=== PATIENT | male | born 1950 | race Caucasian/White ===

== ENCOUNTER 2017-04-22 13:52 | Emergency (ER) | payer BC, MEDICARE ==
[~2017-04-22] VITALS: Ht 177.8 cm; Wt 97.1 kg
[~2017-04-22 13:52] MED LIST: CARD30TA PO; OMEP20TA39 PO; SIMV20 PO
[2017-04-22 14:04] VITALS: BP 146/109; PULSE 95; RESP 16; TEMP 98.6; O2SAT 94
[2017-04-22] MEDS ORDERED: DILT31TA PO (14:17)
[2017-04-22] MEDS ORDERED: SIMV20TA PO (14:17)
[2017-04-22] MEDS ORDERED: OMEP20TA PO (14:17)
[2017-04-22] MEDS ORDERED: ROBA750T PO (14:19)
[2017-04-22] MEDS ORDERED: NAPR250T PO (14:19)
[2017-04-22] MEDS ORDERED: ASPI81CH CHEW (14:21)
[2017-04-22] MEDS ORDERED: VITA10002 PO (14:21)
--- NOTE | 2017-04-22 14:23 | PD ---
HPI Chief Complaint: Back/ Neck Pain or Injury Time Seen by Provider: 14:10 Travel History International Travel<30 days: No Contact w/Intl Traveler<30days: No Traveled to known affect area: No History of Present Illness HPI 67-year-old male presents to the emergency room for evaluation of left lower back pain without radiation for the past. Patient states he was standing on a cooler to kill a bug when he slipped/twisted and fell. He denies hitting his head or loss of consciousness. States he is not sure if the twisting motion causes pain or the fall caused his pain. Pain is worsened with any motion for when he reaches. Patient took his 's Flexeril and Vicodin this morning with moderate relief in symptoms. He any other injuries. Denies loss of bladder control, saddle anesthesia, and lower extremity paresthesias. Patient denies dysuria, urgency, frequency, nausea, and vomiting. PFSH Past Medical History Atrial Fibrillation: Yes High Cholesterol: Yes Diminished Hearing: No Hypertension: Yes Past Surgical History Abdominal Surgery: Yes (HERNIORRHAPHY) Appendectomy: Yes Joint Replacement: Yes (KNEE) Social History Alcohol Use: Yes (BEER DAILY) Tobacco Use: No Substance Use: No Allergies-Medications (Allergen,Severity, Reaction): Coded Allergies: No Known Allergies (Unverified , 04/22/17) Reported Meds & Prescriptions Reported Meds & Active Scripts Active Robaxin (Methocarbamol) 750 Mg Tab 750 Mg PO Q8HR Naproxen 250 Mg Tab 250 Mg PO BID Reported Vitamin B-12 (Cyanocobalamin) 1,000 Mcg Tab 1,000 Mcg PO DAILY Aspirin 81 Mg Chew 81 Mg CHEW DAILY Simvastatin 20 Mg Tab 40 Mg PO DAILY Omeprazole 20 Mg Tab 20 Mg PO DAILY Cardizem (Diltiazem HCl) 30 Mg Tab 30 Mg PO DAILY Review of Systems Except as stated in HPI: all other systems reviewed are Neg Physical Exam Narrative GENERAL: Well-nourished, well-developed male in no acute distress. Afebrile. Ambulatory. SKIN: Focused skin assessment warm/dry. No erythema or ecchymosis. HEAD: Normocephalic. EYES: No scleral icterus. No injection or drainage. NECK: Supple, trachea midline. No JVD or lymphadenopathy. CARDIOVASCULAR: Regular rate and rhythm without murmurs, gallops, or rubs. RESPIRATORY: Breath sounds equal bilaterally. No accessory muscle use. BACK: No CVA tenderness. No rash. No point tenderness on palpation of the spine. Strength 5/5 and equal in lower extremities. 2+ patellar and Achilles reflexes are equal bilaterally. Data Data Last Documented VS Vital Signs Date Time Temp Pulse Resp B/P Pulse Ox O2 Delivery O2 Flow Rate FiO2 04/22/17 14:04 98.6 95 16 146/109 94 Orders Orphenadrine Inj (Norflex Inj) (04/22/17 14:30) Ketorolac Inj (Toradol Inj) (04/22/17 14:30) [facility] Medical Decision Making Medical Screen Exam Complete: Yes Emergency Medical Condition: Yes Medical Record Reviewed: Yes Differential Diagnosis Spasm, strain, sprain, fracture Narrative Course 67 year-old male presents to the emergency room for evaluation of left-sided low back pain after injuring it 2 days ago. Patient states he twisted funny and felt immediate, sharp pain in his left lower back. Denies any other trauma or injuries. He has been ambulatory since onset symptoms. No CVA tenderness. No midline tenderness. No focal neurological deficits. Strength 5/5 and equal lower extremity. 2+ patellar and Achilles reflexes are equal bilaterally. No indication for imaging at this time. Patient given Toradol and Norflex in the emergency room. He'll be discharged with prescriptions for naproxen and Robaxin. Told to follow-up with a primary care physician or return for worsening symptoms. He understands and agrees to plan. Diagnosis Primary Impression: Strain of muscle, fascia and tendon of lower back, initial encounter Referrals: Primary Care Physician Patient Instructions: General Instructions, Muscle Spasm (ED) Additional Instructions: Rest and drink plenty of fluids. Take Robaxin as directed, as needed for pain. Take Naprosyn with food as directed, as needed for pain. Apply ice to the affected area for 20 minutes at a time, as needed for pain and swelling. Follow-up with a primary care physician. Return to the emergency room for worsening symptoms. Med/Other Pt SpecificInfo: Prescription(s) given Scripts Methocarbamol (Robaxin)750 Mg [id number] Mg PO Q8HR #15 TAB Ref 0 Prov:Shira Costa MD 04/22/17 Naproxen 250 Mg [id number] Mg PO BID #14 TAB Ref 0 Prov:Shira Costa MD 04/22/17 Disposition: 01 DISCHARGE HOME Condition: Stable Ann-Marie Frederick Apr 22, 2017 14:23
[2017-04-22] MEDS ORDERED: KETOROLAC TROMETHAMINE 60 MG/2 ML (IM) VIAL IM ONE (14:30)
[2017-04-22] MEDS ORDERED: ORPHENADRINE INJ 60 MG/2 ML AMP IM ONE (14:30)
== END 2017-04-22 14:32 | disposition home or self-care (01) ==
LOC: PHEFT 13:52
DX: S39.012A Strain of muscle, fascia and tendon of lower back, initial encounter (principal); I48.91 Unspecified atrial fibrillation; E78.00 Pure hypercholesterolemia, unspecified; I10 Essential (primary) hypertension; W17.89XA Other fall from one level to another, initial encounter; X50.1XXA Overexertion from prolonged static or awkward postures, initial encounter
CPT/HCPCS: 96372; 99284; J1885; J2360

== ENCOUNTER 2018-03-06 15:36 | Inpatient (IN) | payer MEDICARE, BC ==
[~2018-03-06] VITALS: Ht 177.8 cm; Wt 96.1 kg
[~2018-03-06 15:36] MED LIST changes: +ASPI-516 CHEW; -CARD30TA PO; +DILT31TA PO; +NAPR250T4 PO; -OMEP20TA39 PO; +OMEP20TA93 PO; +ROBA750T PO; -SIMV20 PO; +SIMV20TA PO; +VITA10002 PO
[2018-03-06 15:45] VITALS: BP 124/77; PULSE 75; RESP 18; TEMP 98.5; O2SAT 96
[2018-03-06] MEDS ORDERED: SODIUM CHLORIDE 0.9% FLUSH 10 ML FLUSH IVF PRN (16:00)
[2018-03-06 16:19] VITALS: BP 144/82; PULSE 80; RESP 18; RESP 19; O2SAT 98; O2SAT 99
[2018-03-06 16:27] LABS: AUTOMATED NEUTROPHIL # 4.4 TH/MM3 (1.8-7.7); BASOPHIL # 0.1 TH/MM3 (0-0.2); BASOPHIL % 0.8 % (0.0-2.0); EOSINOPHIL # 0.2 TH/MM3 (0-0.4); EOSINOPHIL % 3.3 % (0.0-4.0); HEMATOCRIT 47.3 % (39.0-51.0); HEMOGLOBIN 16.6 GM/DL (13.0-17.0); LYMPH % 22.9 % (9.0-44.0); LYMPHOCYTE # 1.6 TH/MM3 (1.0-4.8); MEAN CELL VOLUME 89.9 FL (80.0-100.0); MEAN CORPUSCULAR HEMOGLOBIN 31.6 PG (27.0-34.0); MEAN CORPUSCULAR HGB CONC 35.1 % (32.0-36.0); MEAN PLATELET VOLUME 9.8 FL (7.0-11.0); MONO % 9.6 % (0.0-8.0); MONOCYTE # 0.7 TH/MM3 (0-0.9); NEUT % 63.4 % (16.0-70.0); PLATELET COUNT 233 TH/MM3 (150-450); RED BLOOD COUNT 5.26 MIL/MM3 (4.50-5.90); RED CELL DISTRIBUTION WIDTH 13.8 % (11.6-17.2); WHITE BLOOD COUNT 6.9 TH/MM3 (4.0-11.0)
[2018-03-06 16:36] VITALS: PULSE 73; RESP 18; O2SAT 97
[2018-03-06 16:56] LABS: ALBUMIN 3.7 GM/DL (3.4-5.0); ALT (GPT) 25 U/L (12-78); AST (GOT) 18 U/L (15-37); BICARBONATE 26.3 MEQ/L (21.0-32.0); BLOOD UREA NITROGEN 11 MG/DL (7-18); CALCIUM 8.9 MG/DL (8.5-10.1); CHLORIDE 106 MEQ/L (98-107); CREATININE 1.12 MG/DL (0.60-1.30); GLOMERULAR FILTRATION RATE 65 ML/MIN (>89); GLUCOSE,RANDOM 89 MG/DL (74-106); MAGNESIUM 2.2 MG/DL (1.5-2.5); SODIUM (NA) 139 MEQ/L (136-145)
[2018-03-06 16:59] LABS: ALKALINE PHOSPHATASE 61 U/L (45-117); TOTAL BILIRUBIN ADULT 0.4 MG/DL (0.2-1.0); TOTAL PROTEIN 7.6 GM/DL (6.4-8.2)
[2018-03-06] MEDS ORDERED: MAGNESIUM HYDROXIDE SUSP 30 ML CUP PO PRN (17:45)
[2018-03-06] MEDS ORDERED: SODIUM CHLORIDE 0.9% FLUSH 10 ML FLUSH IV FLUSH PRN (17:45)
[2018-03-06] MEDS ORDERED: ONDANSETRON HCL 4 MG/2 ML VIAL IVP PRN (17:45)
[2018-03-06] MEDS ORDERED: NALOXONE HCL 0.4 MG/ML AMP IV PUSH PRN (17:45)
[2018-03-06] MEDS ORDERED: PILL SPLITTER OTHER PRN (18:00)
[2018-03-06] MEDS: ENOXAPARIN SODIUM 40 MG/0.4 ML SYRINGE SQ SCH (18:00)
[2018-03-06] MEDS ORDERED: DILTIAZEM HCL 30 MG TAB PO SCH (18:00)
[2018-03-06 18:09] VITALS: BP 116/71; PULSE 63; RESP 17; O2SAT 98
[2018-03-06] MEDS ORDERED: CARD120T4 PO (18:29)
--- NOTE | 2018-03-06 18:30 | PD ---
HPI Chief Complaint: Cardiac Complaint Time Seen by Provider: 15:55 Travel History International Travel<30 days: No Contact w/Intl Traveler<30days: No Traveled to known affect area: No History of Present Illness HPI This is a 67-year-old male who presents to the emergency department having had several episodes of lightheadedness. He was at the neurologist office when he felt like he was going to [facility], and felt like his ears were ringing and his vision was fading, constant, moderate severity lasting for several minutes and then subsiding. This happened 3 times. Ultimately the neurologist called an ambulance and had him transferred here. When [facility] arrived the patient was in a narrow complex tachycardia. The administered 20 mg of IV diltiazem and the patient converted to normal sinus rhythm. His symptoms resolved. Per his the patient has been seeing a neurologist regarding his lightheadedness and dizziness over the past several months. He has had 18 appointments regarding this and multiple evaluations which have been negative. He has not seen a correspondence school instructor for it. They do say that years ago he was diagnosed with a supraventricular tachycardia and started on diltiazem. Dr. Washington recently increased his dose. He has not seen a correspondence school instructor since then. PFSH Past Medical History Atrial Fibrillation: Yes High Cholesterol: Yes Diminished Hearing: No Hypertension: Yes Neurologic: Yes (subdural hematoma) ?: Not Past Surgical History Abdominal Surgery: Yes (HERNIORRHAPHY) Appendectomy: Yes Joint Replacement: Yes (KNEE) Social History Alcohol Use: Yes (BEER DAILY) Tobacco Use: No Substance Use: No Allergies-Medications (Allergen,Severity, Reaction): Coded Allergies: No Known Allergies (Unverified Allergy, Unknown, 03/06/18) Reported Meds & Prescriptions Reported Meds & Active Scripts Active Robaxin (Methocarbamol) 750 Mg Tab 750 Mg PO Q8HR Naproxen 250 Mg Tab 250 Mg PO BID Reported Cardizem (Diltiazem HCl) 120 Mg Tab 300 Mg PO DAILY Vitamin B-12 (Cyanocobalamin) 1,000 Mcg Tab 1,000 Mcg PO DAILY Aspirin 81 Mg Chew 81 Mg CHEW DAILY Simvastatin 20 Mg Tab 40 Mg PO DAILY Omeprazole 20 Mg Tab 20 Mg PO DAILY Cardizem (Diltiazem HCl) 30 Mg Tab 30 Mg PO DAILY Review of Systems Except as stated in HPI: all other systems reviewed are Neg Physical Exam Narrative GENERAL:Well appearing, no acute distress SKIN: Focused skin assessment warm and dry. HEAD: Atraumatic. Normocephalic. EYES: Pupils equal and round. No injection or drainage. ENT: Moist mucous membranes NECK: Trachea midline. CARDIOVASCULAR: Regular rate and rhythm. No murmur appreciated. RESPIRATORY: Clear to auscultation. Breath sounds equal bilaterally. GASTROINTESTINAL: Abdomen soft, non-tender, nondistended. MUSCULOSKELETAL: No obvious deformities. NEUROLOGICAL: Awake and alert. No obvious cranial nerve deficits. Moving all extremities. PSYCHIATRIC: Appropriate mood and affect; insight and judgment normal. Data Data Last Documented VS Vital Signs Date Time Temp Pulse Resp B/P (MAP) Pulse Ox O2 Delivery O2 Flow Rate FiO2 03/06/18 16:36 73 18 97 Room Air 03/06/18 15:45 98.5 Orders Orders Complete Blood Count With Diff (03/06/18 15:55) Comprehensive Metabolic Panel (03/06/18 15:55) Magnesium (Mg) (03/06/18 15:55) Ecg Monitoring (03/06/18 15:55) Bilateral Bp Monitoring (03/06/18 15:55) Iv Access Insert/Monitor (03/06/18 15:55) Oximetry (03/06/18 15:55) Oxygen Administration (03/06/18 15:55) Sodium Chloride 0.9% Flush (Ns Flush) (03/06/18 16:00) Troponin I (03/06/18 16:49) Electrocardiogram (03/06/18 15:42) Admit Order (Ed Use Only) (03/06/18 17:45) Labs Laboratory Tests Test 03/06/18 16:14 White Blood Count 6.9 TH/MM3 Red Blood Count 5.26 MIL/MM3 Hemoglobin 16.6 GM/DL Hematocrit 47.3 % Mean Corpuscular Volume 89.9 FL Mean Corpuscular Hemoglobin 31.6 PG Mean Corpuscular Hemoglobin Concent 35.1 % Red Cell Distribution Width 13.8 % Platelet Count 233 TH/MM3 Mean Platelet Volume 9.8 FL Neutrophils (%) (Auto) 63.4 % Lymphocytes (%) (Auto) 22.9 % Monocytes (%) (Auto) 9.6 % Eosinophils (%) (Auto) 3.3 % Basophils (%) (Auto) 0.8 % Neutrophils # (Auto) 4.4 TH/MM3 Lymphocytes # (Auto) 1.6 TH/MM3 Monocytes # (Auto) 0.7 TH/MM3 Eosinophils # (Auto) 0.2 TH/MM3 Basophils # (Auto) 0.1 TH/MM3 CBC Comment DIFF FINAL Differential Comment Blood Urea Nitrogen 11 MG/DL Creatinine 1.12 MG/DL Random Glucose 89 MG/DL Total Protein 7.6 GM/DL Albumin 3.7 GM/DL Calcium Level 8.9 MG/DL Magnesium Level 2.2 MG/DL Alkaline Phosphatase 61 U/L Aspartate Amino Transf (AST/SGOT) 18 U/L Alanine Aminotransferase (ALT/SGPT) 25 U/L Total Bilirubin 0.4 MG/DL Sodium Level 139 MEQ/L Potassium Level 4.2 MEQ/L Chloride Level 106 MEQ/L Carbon Dioxide Level 26.3 MEQ/L Anion Gap 7 MEQ/L Estimat Glomerular Filtration Rate 65 ML/MIN Troponin I LESS THAN 0.02 NG/ML MDM Medical Decision Making Medical Screen Exam Complete: Yes Emergency Medical Condition: Yes Interpretation(s) EKG: nsr, no st changes No leukocytosis Electrolytes are reassuring Troponin is normal Differential Diagnosis SVT, electrolyte abnormality, myocardial infarction, dehydration Narrative Course This is a 67-year-old male who presents to the emergent department with symptomatic SVT that occurred several times earlier today. He does not follow with the correspondence school instructor. He is already on diltiazem. Labs are reassuring. Given the frequency of the patient's symptoms despite rate control I think he would benefit from observation and cardiology consultation. Physician Communication Physician Communication Discussed with Dr. Live Diagnosis Primary Impression: Supraventricular tachycardia Admitting Information Admitting Physician Requests: Observation Jennifer Aguilar MD March 06, 2018 18:30
[2018-03-06] MEDS ORDERED: DILTIAZEM HCL 60 MG TAB PO ONE (19:15)
[2018-03-06] MEDS: NAPROXEN 250 MG TAB PO SCH (20:22)
[2018-03-06] MEDS: METOPROLOL TARTRATE 50 MG TAB PO SCH (20:25)
[2018-03-06] MEDS: SODIUM CHLORIDE 0.9% FLUSH 10 ML FLUSH IV FLUSH SCH (20:25)
[2018-03-06] MEDS ORDERED: METHOCARBAMOL 500 MG TAB PO SCH (22:00)
[2018-03-06 22:02] VITALS: BP 105/64; PULSE 52; RESP 17; O2SAT 98
[2018-03-06] MEDS ORDERED: THIAMINE HCL 100 MG TAB PO ONE (22:15)
--- NOTE | 2018-03-06 22:16 | HHI.HP ---
[facility] Service [facility] Primary Care Physician Jaswinder Washington MD Admission Diagnosis supraventricular tachycardia Diagnoses: Travel History International Travel<30 Days: No Contact w/Intl Traveler <30 Da: No Traveled to Known Affected Are: No History of Present Illness 59-year-old male with a history of SVT, who presents with 6 month history of progressively worsening feeling of lightheadedness. Patient was in neurologist office this afternoon when he felt like he was passing out. He does not quite remember this episode well. Reports tinnitus, blurry vision. Patient was found to have narrow complex tachycardia which resolved with IV diltiazem. Patient does report chest pain described as dull substernal on traveling to neurologists office. He denies any chest pain currently. Denies any nausea or vomiting. Denies any fevers or chills. He does report feeling lightheaded, however says this is somewhat improved at this time. Review of Systems Except as stated in HPI: all other systems reviewed are Neg Past Family Social History Past Medical History Chronic pain Hyperlipidemia History of subdural hematoma years ago History of SVT. GERD Past Surgical History Appendectomy Hernia surgery Subdural hematoma evacuation in the 1970s. Left shoulder surgery Reported Medications Reported Meds & Active Scripts Active Robaxin (Methocarbamol) 750 Mg Tab 750 Mg PO Q8HR Naproxen 250 Mg Tab 250 Mg PO BID Reported Cardizem (Diltiazem HCl) 120 Mg Tab 300 Mg PO DAILY Vitamin B-12 (Cyanocobalamin) 1,000 Mcg Tab 1,000 Mcg PO DAILY Aspirin 81 Mg Chew 81 Mg CHEW DAILY Simvastatin 20 Mg Tab 40 Mg PO DAILY Omeprazole 20 Mg Tab 20 Mg PO DAILY Cardizem (Diltiazem HCl) 30 Mg Tab 30 Mg PO DAILY Allergies: Coded Allergies: No Known Allergies (Unverified Allergy, Unknown, 03/06/18) Family History Mother with diabetes, CABG in her 70s. Father with ulcer, lung cancer. Social History Non-smoker. Patient drinks 3-4 beers per day. Has not drank in the past 2 days. Denies any history of withdrawal. Denies any illicit drugs. Physical Exam Vital Signs Vital Signs Date Time Temp Pulse Resp B/P (MAP) Pulse Ox O2 Delivery O2 Flow Rate FiO2 03/06/18 22:02 52 17 105/64 (78) 98 Nasal Cannula 2.00 03/06/18 18:09 63 17 116/71 (86) 98 Room Air 03/06/18 16:36 73 18 97 Room Air 03/06/18 16:19 80 19 144/82 (102) 98 Room Air 03/06/18 16:19 18 99 Room Air 03/06/18 16:19 99 Room Air 03/06/18 15:45 98.5 75 18 124/77 (93) 96 Room Air 03/06/18 15:45 75 18 96 Room Air Physical Exam GENERAL: This is a well-nourished, well-developed patient, in no apparent distress. Alert and oriented 3. SKIN: No rashes, ecchymoses or lesions. Cool and dry. HEAD: Atraumatic. Normocephalic. No temporal or scalp tenderness. EYES: Pupils equal round and reactive. Extraocular motions intact. No scleral icterus. No injection or drainage. ENT: Nose without bleeding, purulent drainage or septal hematoma. Throat without erythema, tonsillar hypertrophy or exudate. Uvula midline. Airway patent. NECK: Trachea midline. No JVD or lymphadenopathy. Supple, nontender, no meningeal signs. CARDIOVASCULAR: Regular rate and rhythm without murmurs, gallops, or rubs. RESPIRATORY: Clear to auscultation. Breath sounds equal bilaterally. No wheezes , rales, or rhonchi. GASTROINTESTINAL: Abdomen soft, non-tender, nondistended. No hepato-splenomegaly , or palpable masses. No guarding. MUSCULOSKELETAL: Extremities without clubbing, cyanosis, or edema. No joint tenderness, effusion, or edema noted. No calf tenderness. Negative Homans sign bilaterally. NEUROLOGICAL: Awake and alert. Cranial nerves II through XII intact. Motor and sensory grossly within normal limits. Five out of 5 muscle strength in all muscle groups. Normal speech. Laboratory Laboratory Tests Test 03/06/18 16:14 03/06/18 21:48 White Blood Count 6.9 Red Blood Count 5.26 Hemoglobin 16.6 Hematocrit 47.3 Mean Corpuscular Volume 89.9 Mean Corpuscular Hemoglobin 31.6 Mean Corpuscular Hemoglobin Concent 35.1 Red Cell Distribution Width 13.8 Platelet Count 233 Mean Platelet Volume 9.8 Neutrophils (%) (Auto) 63.4 Lymphocytes (%) (Auto) 22.9 Monocytes (%) (Auto) 9.6 Eosinophils (%) (Auto) 3.3 Basophils (%) (Auto) 0.8 Neutrophils # (Auto) 4.4 Lymphocytes # (Auto) 1.6 Monocytes # (Auto) 0.7 Eosinophils # (Auto) 0.2 Basophils # (Auto) 0.1 CBC Comment DIFF FINAL Differential Comment Blood Urea Nitrogen 11 Creatinine 1.12 Random Glucose 89 Total Protein 7.6 Albumin 3.7 Calcium Level 8.9 Magnesium Level 2.2 Alkaline Phosphatase 61 Aspartate Amino Transf (AST/SGOT) 18 Alanine Aminotransferase (ALT/SGPT) 25 Total Bilirubin 0.4 Sodium Level 139 Potassium Level 4.2 Chloride Level 106 Carbon Dioxide Level 26.3 Anion Gap 7 Estimat Glomerular Filtration Rate 65 Troponin I LESS THAN 0.02 Result Diagram: 03/06/18 1614 03/06/18 1614 Caprini VTE Risk Assessment Caprini VTE Risk Assessment: Mod/High Risk (score >= 2) Caprini Risk Assessment Model Point Value = 1 Point Value = 2 Point Value = 3 Point Value = 5 Age 41-60 Minor surgery BMI > 25 kg/m2 Swollen legs Varicose veins or History of unexplained or recurrent spontaneous Oral contraceptives or hormone replacement Sepsis (< 1 month) Serious lung disease, including pneumonia (< 1 month) Abnormal pulmonary function Acute myocardial infarction Congestive heart failure (< 1 month) History of inflammatory bowel disease Medical patient at bed rest Age 61-74 Arthroscopic surgery Major open surgery (> 45 min) Laparoscopic surgery (> 45 min) Malignancy Confined to bed (> 72 hours) Immobilizing plaster cast Central venous access Age >= 75 History of VTE Family history of VTE Factor V Leiden Prothrombin [id number] Lupus anticoagulant Anticardiolipin antibodies Elevated serum homocysteine Heparin-induced thrombocytopenia Other congenital or acquired thrombophilia Stroke (< 1 month) Elective arthroplasty Hip, pelvis, or leg fracture Acute spinal cord injury (< 1 month) Prophylaxis Regimen Total Risk Factor Score Risk Level Prophylaxis Regimen 0-1 Low Early ambulation 2 Moderate Order ONE of the following: *Sequential Compression Device (SCD) *Heparin 5000 units SQ BID 3-4 Higher Order ONE of the following medications: *Heparin 5000 units SQ TID *Enoxaparin/Lovenox 40 mg SQ daily (WT < 150 kg, CrCl > 30 mL/min) *Enoxaparin/Lovenox 30 mg SQ daily (WT < 150 kg, CrCl > 10-29 mL/min) *Enoxaparin/Lovenox 30 mg SQ BID (WT < 150 kg, CrCl > 30 mL/min) AND/OR *Sequential Compression Device (SCD) 5 or more Highest Order ONE of the following medications: *Heparin 5000 units SQ TID (Preferred with Epidurals) *Enoxaparin/Lovenox 40 mg SQ daily (WT < 150 kg, CrCl > 30 mL/min) *Enoxaparin/Lovenox 30 mg SQ daily (WT < 150 kg, CrCl > 10-29 mL/min) *Enoxaparin/Lovenox 30 mg SQ BID (WT < 150 kg, CrCl > 30 mL/min) AND *Sequential Compression Device (SCD) Assessment and Plan Assessment and Plan //Syncope //Intermittent chest pain = Troponins and EKGs negative 1. Continue to trend. Chest pain is likely secondary to intermittent tachycardia. = Orthostatic vitals. Carotid ultrasound. Echocardiogram -Have increased dose of diltiazem. Will consult cardiology. Continue to trend EKGs and troponin. //Hyperlipidemia. Chronic. Continue home medications. //GERD. Chronic. Continue home medications. //Chronic pain. Hold off on Robaxin for now. Could be contributing to patient' s feeling of lightheadedness. //Patient drinks 3-4 beers daily at home. Discussed decreasing alcohol use at home. Discussed Condition With Patient, nurse, ED physician. Physician Certification 2 Midnight Certification Type: Admission for Inpatient Services Order for Inpatient Services The services are ordered in accordance with Medicare regulations or non- Medicare payer requirements, as applicable. In the case of services not specified as inpatient-only, they are appropriately provided as inpatient services in accordance with the 2-midnight benchmark. Estimated LOS (days): 2 days is the estimated time the patient will need to remain in the hospital, assuming treatment plan goals are met and no additional complications. Post-Hospital Plan: Not yet determined Clinton Canchola MD March 06, 2018 22:16
--- NOTE | 2018-03-06 23:02 | MB ---
cc: Karl Gomez MD DATE: 03/06/2018 HISTORY OF PRESENT ILLNESS: This is a 67-year-old white male with a history of hypertension and subdural hematoma, presented with episodes of dizziness and lightheadedness. He has been evaluated by Neurology in the past. He has previous history of supraventricular tachycardia and has been on diltiazem. He had 3 episodes of dizziness today. He was found to have supraventricular tachycardia. He was given IV diltiazem, which converted him to sinus rhythm. The patient complains of vague substernal discomfort with his tachycardia. He has not had any significant dyspnea. PAST MEDICAL HISTORY: Positive for supraventricular tachycardia, hypertension, dyslipidemia, subdural hematoma, knee replacement, shoulder surgery, two hernia surgeries, appendectomy. MEDICATIONS: Include diltiazem 300 mg a day, vitamin B12, omeprazole, pravastatin 40 mg a day, aspirin 81 mg a day. ALLERGIES: NONE. SOCIAL HISTORY: The patient does not smoke. He drinks 3-4 beers daily. He is . FAMILY HISTORY: Negative for heart disease in direct relatives. REVIEW OF SYSTEMS: Otherwise negative. PHYSICAL EXAMINATION: VITAL SIGNS: Blood pressure 116/71, pulse 63 and regular. HEENT: Negative. NECK: 2+ upstrokes, no bruits. LUNGS: Clear. HEART: Regular, with no murmur, gallop or rub. ABDOMEN: Soft. No bruits. EXTREMITIES: Without edema, +2 pulses. NEUROLOGIC: Grossly nonfocal. ECHOCARDIOGRAM: Was reviewed and showed a narrow complex tachycardia. Subsequent EKG showed sinus rhythm. LABORATORY DATA: Hemoglobin 16.6, potassium 4.2, creatinine 1.1, AST and ALT normal. Troponin less than 0.02. ASSESSMENT: 1. Paroxysmal supraventricular tachycardia with symptoms. 2. Hypertension. 3. Dyslipidemia. 4. History of subdural hematoma. 5. Habitual alcohol use. DISPOSITION: Mr. Pop will be monitored on telemetry. We will switch him from diltiazem to metoprolol and if necessary also add digoxin. We will obtain serial enzymes and EKGs. I will follow him for cardiology during his hospitalization. I will also see him back for followup in our office after discharge. MD ALDEN Fisher/ROMERO/scarlet , 07:56 PM , 09:05 PM FRIDA
[2018-03-06 23:16] LABS: TROPONIN I LESS THAN 0.02 NG/ML (0.02-0.05)
[2018-03-07] VITALS (9 sets, daily range): BP systolic 102–135; BP diastolic 59–76; PULSE 50–83; RESP 14–20; TEMP 97.9–98.1; O2SAT 94–97
[2018-03-07] MEDS ORDERED: DILTIAZEM HCL 90 MG TAB PO SCH
[2018-03-07 04:15] LABS: ALBUMIN 3.1 GM/DL (3.4-5.0); ALKALINE PHOSPHATASE 52 U/L (45-117); ALT (GPT) 22 U/L (12-78); AST (GOT) 18 U/L (15-37); BICARBONATE 28.3 MEQ/L (21.0-32.0); BLOOD UREA NITROGEN 13 MG/DL (7-18); CALCIUM 8.2 MG/DL (8.5-10.1); CHLORIDE 107 MEQ/L (98-107); CREATININE 1.04 MG/DL (0.60-1.30); GLOMERULAR FILTRATION RATE 71 ML/MIN (>89); GLUCOSE,RANDOM 73 MG/DL (74-106); SODIUM (NA) 141 MEQ/L (136-145); TOTAL BILIRUBIN ADULT 0.3 MG/DL (0.2-1.0); TOTAL PROTEIN 6.5 GM/DL (6.4-8.2); TROPONIN I LESS THAN 0.02 NG/ML (0.02-0.05)
[2018-03-07 05:33] LABS: AUTOMATED NEUTROPHIL # 3.4 TH/MM3 (1.8-7.7); BASOPHIL # 0.1 TH/MM3 (0-0.2); EOSINOPHIL # 0.3 TH/MM3 (0-0.4); EOSINOPHIL % 5.3 % (0.0-4.0); HEMATOCRIT 43.3 % (39.0-51.0); HEMOGLOBIN 14.6 GM/DL (13.0-17.0); LYMPH % 31.6 % (9.0-44.0); LYMPHOCYTE # 2.1 TH/MM3 (1.0-4.8); MEAN CELL VOLUME 90.5 FL (80.0-100.0); MEAN CORPUSCULAR HEMOGLOBIN 30.5 PG (27.0-34.0); MEAN CORPUSCULAR HGB CONC 33.7 % (32.0-36.0); MEAN PLATELET VOLUME 9.7 FL (7.0-11.0); MONO % 10.8 % (0.0-8.0); MONOCYTE # 0.7 TH/MM3 (0-0.9); NEUT % 51.3 % (16.0-70.0); PLATELET COUNT 234 TH/MM3 (150-450); RED BLOOD COUNT 4.78 MIL/MM3 (4.50-5.90); RED CELL DISTRIBUTION WIDTH 13.2 % (11.6-17.2); WHITE BLOOD COUNT 6.5 TH/MM3 (4.0-11.0)
--- NOTE | 2018-03-07 08:03 | HHI.PR ---
Subjective Remarks Follow-up SVT. Patient says he feels a little better today. Less shortness of breath. Does not feel palpitations at this time. Feels tired. Says he did not sleep much last night. No chest pain or shortness of breath at this time. No lightheadedness at this time. However he did not ambulate. Seen by cardiology last night patient is telling me his sister also has the same problem and. She has done ablation with her cardiology and improved significantly. Patient says he had multiple episodes of SVT and thinks medications are not working. However his heart rate is better now we will continue to monitor on telemetry and monitoring medications are working. Discussed with the patient consideration of ablation if not improved with medications. Cardiology also following Objective Vitals Vital Signs Date Time Temp Pulse Resp B/P (MAP) Pulse Ox O2 Delivery O2 Flow Rate FiO2 03/07/18 07:00 54 16 116/75 (89) 97 Room Air 03/07/18 03:44 50 16 116/63 (80) 97 Nasal Cannula 03/07/18 00:59 50 14 112/65 (81) 96 Room Air 03/07/18 00:41 50 16 102/59 (73) 48 16 111/65 (80) 57 18 112/65 (81) 03/07/18 00:36 98.1 50 16 102/59 (73) 95 Room Air 03/06/18 22:02 52 17 105/64 (78) 98 Nasal Cannula 2.00 03/06/18 18:09 63 17 116/71 (86) 98 Room Air 03/06/18 16:36 73 18 97 Room Air 03/06/18 16:19 80 19 144/82 (102) 98 Room Air 03/06/18 16:19 18 99 Room Air 03/06/18 16:19 99 Room Air 03/06/18 15:45 98.5 75 18 124/77 (93) 96 Room Air 03/06/18 15:45 75 18 96 Room Air Result Diagram: 03/07/18 0400 03/07/18 0340 Objective Remarks GENERAL: This is a well-nourished, well-developed patient, in no apparent distress. Alert and oriented 3. CARDIOVASCULAR: Regular rate and rhythm without murmurs, gallops, or rubs. RESPIRATORY: Clear to auscultation. Breath sounds equal bilaterally. No wheezes , rales, or rhonchi. GASTROINTESTINAL: Abdomen soft, non-tender, nondistended. No hepato-splenomegaly , or palpable masses. No guarding. MUSCULOSKELETAL: Extremities without clubbing, cyanosis, or edema. No joint tenderness, effusion, or edema noted. No calf tenderness. Negative Homans sign bilaterally. NEUROLOGICAL: Awake and alert. Cranial nerves II through XII intact. Motor and sensory grossly within normal limits. Five out of 5 muscle strength in all muscle groups. Normal speech. A/P Assessment and Plan Syncope Intermittent chest pain Paroxysmal SVT. Patient says he has a history of SVT recurrent and seems medications are not helping. Says his sister also has SVT and she had ablation done. Patient inquires regarding ablation discussed at length with the patient. Troponins and EKGs negative. Chest pain is likely secondary to intermittent tachycardia. Resolving. Orthostatic vitals. Carotid US was done at [facility] approximately 2 weeks 02/21 and no stenosis was seen. Patient is refusing carotid US. Echocardiogram pending Consult cardiology. DC diltiazem and start metoprolol po 50 mg bid, and if necessary also, add digoxin. Hyperlipidemia. Chronic. Continue home medications. GERD. Chronic. Continue home medications. Chronic pain. Hold off on Robaxin for now. Could be contributing to patient's feeling of lightheadedness. Alcohol use: Patient drinks 3-4 beers daily at home. Discussed decreasing alcohol use. Counselled. Discussed Condition With Patient, nurse. DC when improved and cleared by cardio. Mckayla Sainz MD March 07, 2018 08:03
[2018-03-07] MEDS: METOPROLOL TARTRATE 50 MG TAB PO SCH ×2 (08:38→21:05)
[2018-03-07] MEDS: NAPROXEN 250 MG TAB PO SCH ×2 (09:00→21:05)
[2018-03-07] MEDS: SODIUM CHLORIDE 0.9% FLUSH 10 ML FLUSH IV FLUSH SCH ×2 (09:00→21:06)
[2018-03-07] MEDS: ASPIRIN 81 MG CHEW TAB CHEW SCH (09:06)
[2018-03-07] MEDS: CYANOCOBALAMIN 1,000 MCG TAB PO SCH (09:06)
[2018-03-07] MEDS: PRAVASTATIN SOD 80 MG TAB PO SCH (09:06)
[2018-03-07] MEDS: PANTOPRAZOLE SOD 20 MG DELAYED RELEASE TAB PO SCH (09:07)
--- NOTE | 2018-03-07 10:55 | EKG ---
Date Performed: 03/07/2018 Time Performed: 03:21:04 PTAGE: 67 years EKG: Sinus rhythm WITH PACs ABNORMAL RHYTHM ECG PREVIOUS TRACING : 03/06/2018 15.42 DOCTOR: Kenneth Shay Interpretating Date/Time 03/07/2018 10:53:41
--- NOTE | 2018-03-07 11:05 | EKG ---
Date Performed: 03/06/2018 Time Performed: 21:51:24 PTAGE: 67 years EKG: SINUS BRADYCARDIA BORDERLINE ECG NO PREVIOUS TRACING DOCTOR: Kenneth Shay Interpretating Date/Time 03/07/2018 11:03:16
--- NOTE | 2018-03-07 11:37 | EKG ---
Date Performed: 03/06/2018 Time Performed: 15:42:35 PTAGE: 67 years EKG: Sinus rhythm BORDERLINE LEFT AXIS DEVIATION BORDERLINE ECG NO PREVIOUS TRACING DOCTOR: Kenneth Shay Interpretating Date/Time 03/07/2018 11:34:46
[2018-03-07] MEDS: ENOXAPARIN SODIUM 40 MG/0.4 ML SYRINGE SQ SCH (18:00)
--- NOTE | 2018-03-07 18:03 | PD.CARD.PN ---
Subjective Subjective Remarks No CP, SOB, dizziness, or palpitations, feels well today Objective Medications Current Medications Medications (Trade) Dose Ordered Sig/Quinton Route Start Time Stop Time Status Last Admin (NS Flush) 2 ml UNSCH PRN IV FLUSH 03/06/18 17:45 (NS Flush) 2 ml BID IV FLUSH 03/06/18 21:00 03/07/18 09:00 (Zofran Inj) 4 mg Q6H PRN IVP 03/06/18 17:45 (Lovenox Inj) 40 mg Q24H SQ 03/06/18 18:00 03/06/18 18:00 (Narcan Inj) 0.4 mg UNSCH PRN IV PUSH 03/06/18 17:45 (Milk Of Magnesia Liq) 30 ml Q12H PRN PO 03/06/18 17:45 (Aspirin Chew) 81 mg DAILY CHEW 03/07/18 09:00 03/07/18 09:06 (Vitamin B12) 1,000 mcg DAILY PO 03/07/18 09:00 03/07/18 09:06 (Naprosyn) 250 mg BID PO 03/06/18 21:00 03/06/18 20:22 (Protonix) 20 mg DAILY PO 03/07/18 09:00 03/07/18 09:07 (Pravachol) 80 mg DAILY PO 03/07/18 09:00 03/07/18 09:06 (Pill Splitter) 1 ea UNSCH PRN OTHER 03/06/18 18:00 (Lopressor) 50 mg Q12HR PO 03/06/18 21:00 03/06/18 20:25 Vital Signs / I&O Vital Signs Date Time Temp Pulse Resp B/P (MAP) Pulse Ox O2 Delivery O2 Flow Rate FiO2 03/07/18 11:50 65 20 112/66 (81) 95 03/07/18 07:30 56 18 113/72 (86) 94 03/07/18 07:00 54 16 116/75 (89) 97 Room Air 03/07/18 03:44 50 16 116/63 (80) 97 Nasal Cannula 03/07/18 00:59 50 14 112/65 (81) 96 Room Air 03/07/18 00:41 50 16 102/59 (73) 48 16 111/65 (80) 57 18 112/65 (81) 03/07/18 00:36 98.1 50 16 102/59 (73) 95 Room Air 03/06/18 22:02 52 17 105/64 (78) 98 Nasal Cannula 2.00 03/06/18 18:09 63 17 116/71 (86) 98 Room Air I/O 03/06/18 03/06/18 03/06/18 03/07/18 03/07/18 03/07/18 07:00 15:00 23:00 07:00 15:00 23:00 Intake Total 330 ml Output Total 400 ml Balance -70 ml Intake Oral 330 ml Output Urine Total 400 ml # Voids 3 Physical Exam GENERAL: In NAD. SKIN: Warm and dry. HEAD: Normocephalic. EYES: No scleral icterus. No injection or drainage. NECK: Supple, trachea midline. No JVD or lymphadenopathy. CARDIOVASCULAR: Regular rate and rhythm without murmurs, gallops, or rubs. RESPIRATORY: Breath sounds equal bilaterally. No accessory muscle use. GASTROINTESTINAL: Abdomen soft, non-tender, nondistended. MUSCULOSKELETAL: No cyanosis, or edema. Laboratory Laboratory Tests Test 03/06/18 22:40 03/07/18 03:40 03/07/18 04:00 Total Creatine Kinase 39 U/L 45 U/L Troponin I LESS THAN 0.02 NG/ML LESS THAN 0.02 NG/ML Blood Urea Nitrogen 13 MG/DL Creatinine 1.04 MG/DL Random Glucose 73 MG/DL Total Protein 6.5 GM/DL Albumin 3.1 GM/DL Calcium Level 8.2 MG/DL Alkaline Phosphatase 52 U/L Aspartate Amino Transf (AST/SGOT) 18 U/L Alanine Aminotransferase (ALT/SGPT) 22 U/L Total Bilirubin 0.3 MG/DL Sodium Level 141 MEQ/L Potassium Level 4.3 MEQ/L Chloride Level 107 MEQ/L Carbon Dioxide Level 28.3 MEQ/L Anion Gap 6 MEQ/L Estimat Glomerular Filtration Rate 71 ML/MIN White Blood Count 6.5 TH/MM3 Red Blood Count 4.78 MIL/MM3 Hemoglobin 14.6 GM/DL Hematocrit 43.3 % Mean Corpuscular Volume 90.5 FL Mean Corpuscular Hemoglobin 30.5 PG Mean Corpuscular Hemoglobin Concent 33.7 % Red Cell Distribution Width 13.2 % Platelet Count 234 TH/MM3 Mean Platelet Volume 9.7 FL Neutrophils (%) (Auto) 51.3 % Lymphocytes (%) (Auto) 31.6 % Monocytes (%) (Auto) 10.8 % Eosinophils (%) (Auto) 5.3 % Basophils (%) (Auto) 1.0 % Neutrophils # (Auto) 3.4 TH/MM3 Lymphocytes # (Auto) 2.1 TH/MM3 Monocytes # (Auto) 0.7 TH/MM3 Eosinophils # (Auto) 0.3 TH/MM3 Basophils # (Auto) 0.1 TH/MM3 CBC Comment DIFF FINAL Differential Comment Assessment and Plan Problem List: (1) Supraventricular tachycardia ICD Codes: I47.1 - Supraventricular tachycardia Status: Acute (2) HTN (hypertension) ICD Codes: I10 - Essential (primary) hypertension (3) Dyslipidemia ICD Codes: E78.5 - Hyperlipidemia, unspecified (4) Subdural hematoma ICD Codes: S06.5X9A - Traumatic subdural hemorrhage with loss of consciousness of unspecified duration, initial encounter (5) EtOH dependence ICD Codes: F10.20 - Alcohol dependence, uncomplicated Assessment and Plan No recurrent SVT. Asymptomatic today. BP well controlled. Continue metoprolol. Increase activity. Will schedule f/u as outpt. Anticipate discharge home soon. Karl Gomez MD March 07, 2018 18:03
[2018-03-08] VITALS: BP 132/75; PULSE 61; PULSE 66; RESP 17; TEMP 97.8; O2SAT 96
[2018-03-08 04:00] VITALS: BP 121/77; PULSE 51; PULSE 65; RESP 16; TEMP 97.3; O2SAT 95
[2018-03-08 08:00] VITALS: PULSE 51
[2018-03-08 08:05] VITALS: BP 135/80; PULSE 64; RESP 16; TEMP 97.8; O2SAT 95
[2018-03-08] MEDS: NAPROXEN 250 MG TAB PO SCH (09:50)
[2018-03-08] MEDS: PANTOPRAZOLE SOD 20 MG DELAYED RELEASE TAB PO SCH (09:50)
[2018-03-08] MEDS: CYANOCOBALAMIN 1,000 MCG TAB PO SCH (09:51)
[2018-03-08] MEDS: METOPROLOL TARTRATE 50 MG TAB PO SCH (09:51)
[2018-03-08] MEDS: PRAVASTATIN SOD 80 MG TAB PO SCH (09:51)
[2018-03-08] MEDS: SODIUM CHLORIDE 0.9% FLUSH 10 ML FLUSH IV FLUSH SCH (09:51)
[2018-03-08] MEDS: ASPIRIN 81 MG CHEW TAB CHEW SCH (09:51)
[2018-03-08 12:00] VITALS: PULSE 61
[2018-03-08 12:05] VITALS: BP 119/74; PULSE 56; RESP 16; TEMP 97.6; O2SAT 96
[2018-03-08] MEDS ORDERED: METO-309 PO (13:15)
--- NOTE | 2018-03-08 14:30 | PD.CARD.PN ---
Subjective Subjective Remarks No recurrent symptoms, ambulating without difficulty Objective Vital Signs / I&O Vital Signs Date Time Temp Pulse Resp B/P (MAP) Pulse Ox O2 Delivery O2 Flow Rate FiO2 03/08/18 12:00 61 03/08/18 08:05 97.8 64 16 135/80 (98) 95 03/08/18 08:00 51 03/08/18 07:00 Room Air 03/08/18 04:00 97.3 65 16 121/77 (92) 95 03/08/18 04:00 51 03/08/18 04:00 Room Air 03/08/18 00:00 Room Air 03/08/18 00:00 97.8 61 17 132/75 (94) 96 03/08/18 00:00 66 03/07/18 20:00 83 03/07/18 20:00 97.9 72 18 135/76 (95) 96 03/07/18 20:00 Room Air 03/07/18 16:00 68 I/O 03/07/18 03/07/18 03/07/18 03/08/18 03/08/18 03/08/18 07:00 15:00 23:00 07:00 15:00 23:00 Intake Total 330 ml 360 ml Output Total 400 ml 400 ml 600 ml Balance -70 ml -400 ml -240 ml Intake Oral 330 ml 360 ml Output Urine Total 400 ml 400 ml 600 ml # Voids 3 Physical Exam GENERAL: In NAD. SKIN: Warm and dry. HEAD: Normocephalic. EYES: No scleral icterus. No injection or drainage. NECK: Supple, trachea midline. No JVD or lymphadenopathy. CARDIOVASCULAR: Regular rate and rhythm without murmurs, gallops, or rubs. RESPIRATORY: Breath sounds equal bilaterally. No accessory muscle use. GASTROINTESTINAL: Abdomen soft, non-tender, nondistended. MUSCULOSKELETAL: No cyanosis, or edema. Assessment and Plan Problem List: (1) Supraventricular tachycardia ICD Codes: I47.1 - Supraventricular tachycardia Status: Acute (2) HTN (hypertension) ICD Codes: I10 - Essential (primary) hypertension (3) Dyslipidemia ICD Codes: E78.5 - Hyperlipidemia, unspecified (4) Subdural hematoma ICD Codes: S06.5X9A - Traumatic subdural hemorrhage with loss of consciousness of unspecified duration, initial encounter (5) EtOH dependence ICD Codes: F10.20 - Alcohol dependence, uncomplicated Assessment and Plan No recurrent SVT on beta tommy. Remains asymptomatic. BP well controlled. Continue current program with metoprolol. Increase activity. Will schedule f/u as outpt. DC home today as planned. Karl Gomez MD March 08, 2018 14:30
--- NOTE | 2018-03-08 18:06 | HHI.PR ---
Objective Vitals Vital Signs Date Time Temp Pulse Resp B/P (MAP) Pulse Ox O2 Delivery O2 Flow Rate FiO2 03/08/18 12:05 97.6 56 16 119/74 (89) 96 03/08/18 12:00 61 03/08/18 08:05 97.8 64 16 135/80 (98) 95 03/08/18 08:00 51 03/08/18 07:00 Room Air 03/08/18 04:00 97.3 65 16 121/77 (92) 95 03/08/18 04:00 51 03/08/18 04:00 Room Air 03/08/18 00:00 Room Air 03/08/18 00:00 97.8 61 17 132/75 (94) 96 03/08/18 00:00 66 03/07/18 20:00 83 03/07/18 20:00 97.9 72 18 135/76 (95) 96 03/07/18 20:00 Room Air I/O 03/07/18 03/07/18 03/07/18 03/08/18 03/08/18 03/08/18 07:00 15:00 23:00 07:00 15:00 23:00 Intake Total 330 ml 360 ml Output Total 400 ml 400 ml 600 ml Balance -70 ml -400 ml -240 ml Intake Oral 330 ml 360 ml Output Urine Total 400 ml 400 ml 600 ml # Voids 3 Result Diagram: 03/07/18 0400 03/07/18 0340 Trina Ahuja MD March 08, 2018 18:06
== END 2018-03-08 14:17 | disposition home or self-care (01) | DRG 310 ==
LOC: NEPE 15:36 → NEDA 17:48 → NEDH 21:48 → N04B 03-07 14:12
PROVIDERS: ADMIT Hospitalist; ATTEND Hospitalist
DX: I47.1 Supraventricular tachycardia (principal); I10 Essential (primary) hypertension; E78.5 Hyperlipidemia, unspecified; K21.9 Gastro-esophageal reflux disease without esophagitis; Z79.82 Long term (current) use of aspirin; G89.29 Other chronic pain; Z72.89 Other problems related to lifestyle; Z96.659 Presence of unspecified artificial knee joint
CPT/HCPCS: 80053; 82550; 83735; 84484; 85025; 93005; J1650

== ENCOUNTER 2018-03-09 19:24 | Inpatient (IN) | payer MEDICARE, BC ==
[~2018-03-09] VITALS: Ht 177.8 cm; Wt 94.2 kg
[~2018-03-09 19:24] MED LIST changes: +CARD120T4 PO; +METO-309 PO
[2018-03-09 19:28] VITALS: BP 123/68; PULSE 87; RESP 18; TEMP 98.3; O2SAT 98
[2018-03-09 19:41] VITALS: BP 114/67; PULSE 87; RESP 16; O2SAT 95
--- NOTE | 2018-03-09 19:56 | PD ---
HPI Chief Complaint: Syncope/Near-Syncope Time Seen by Provider: 19:38 Travel History International Travel<30 days: No Contact w/Intl Traveler<30days: No Traveled to known affect area: No History of Present Illness HPI 67yo M with PMH of paroxysmal SVT presents to the ED with c/o syncope x 4. Pt' s said he was sitting down an hour ago and became unresponsive for 15 seconds. Said he had midsternal chest pain prior to passing out. Chest pain was dull lasted a few minutes. Pt does feel sob now. Said it happened 3 more times, last episode in the wheelchair in the waiting room. Pt does seem a little confused afterwards but denies any shaking or stiffening of his body. Had subdural hematoma years ago and denies any trauma, focal weakness or numbness. Pt was just discharged yesterday for syncope and SVT. Pt was evaluated by Dr. Gomez and placed on metoprolol. Pt had US carotid in 01/2018 and had refused repeat. PFSH Past Medical History Atrial Fibrillation: Yes High Cholesterol: Yes Diminished Hearing: No Genitourinary: No Hypertension: Yes Musculoskeletal: No Neurologic: Yes (subdural hematoma) Reproductive: No Respiratory: No Past Surgical History Abdominal Surgery: Yes (HERNIORRHAPHY, appendectomy) Appendectomy: Yes Joint Replacement: Yes (KNEE) Neurologic Surgery: Yes (SUBDURAL HEMATOMA REMOVAL) Other Surgery: Yes Social History Alcohol Use: Yes (BEER DAILY) Tobacco Use: No Substance Use: No Allergies-Medications (Allergen,Severity, Reaction): Coded Allergies: No Known Allergies (Unverified Allergy, Unknown, 03/09/18) Reported Meds & Prescriptions Reported Meds & Active Scripts Active Lopressor (Metoprolol Tartrate) 50 Mg Tab 50 Mg PO Q12HR Robaxin (Methocarbamol) 750 Mg Tab 750 Mg PO Q8HR Naproxen 250 Mg Tab 250 Mg PO BID Reported Cardizem (Diltiazem HCl) 120 Mg Tab 300 Mg PO DAILY Vitamin B-12 (Cyanocobalamin) 1,000 Mcg Tab 1,000 Mcg PO DAILY Aspirin 81 Mg Chew 81 Mg CHEW DAILY Simvastatin 20 Mg Tab 40 Mg PO DAILY Omeprazole 20 Mg Tab 20 Mg PO DAILY Cardizem (Diltiazem HCl) 30 Mg Tab 30 Mg PO DAILY Review of Systems Except as stated in HPI: all other systems reviewed are Neg Physical Exam Narrative GENERAL: 67yo M in mild distress. SKIN: Focused skin assessment warm/dry. HEAD: Atraumatic. Normocephalic. EYES: Pupils equal and round. No scleral icterus. No injection or drainage. ENT: No nasal bleeding or discharge. Mucous membranes pink and moist. NECK: Trachea midline. No JVD. CARDIOVASCULAR: Regular rate and rhythm. No murmur appreciated. RESPIRATORY: No accessory muscle use. Clear to auscultation. Breath sounds equal bilaterally. GASTROINTESTINAL: Abdomen soft, non-tender, nondistended. MUSCULOSKELETAL: No obvious deformities. No clubbing. No cyanosis. No edema. NEUROLOGICAL: Awake and alert. No obvious cranial nerve deficits. Motor grossly within normal limits in all extremities. Sensation intact. Normal speech. PSYCHIATRIC: Appropriate mood and affect; insight and judgment normal. Data Data Last Documented VS Vital Signs Date Time Temp Pulse Resp B/P (MAP) Pulse Ox O2 Delivery O2 Flow Rate FiO2 03/09/18 21:44 79 17 105/61 (76) 96 Room Air 03/09/18 19:28 98.3 Orders Orders Basic Metabolic Panel (Bmp) (03/09/18 19:50) Comprehensive Metabolic Panel (03/09/18 19:50) Magnesium (Mg) (03/09/18 19:50) Ckmb (Isoenzyme) Profile (03/09/18 19:50) Troponin I (03/09/18 19:50) Act Partial Throm Time (Ptt) (03/09/18 19:50) Prothrombin Time / Inr (Pt) (03/09/18 19:50) Chest, Single Ap (03/09/18 19:50) Ct Brain W/O Iv Contrast(Rout) (03/09/18 19:50) Blood Glucose (03/09/18 19:50) Metoprolol Tartrate (Lopressor) (03/09/18 20:15) Complete Blood Count With Diff (03/09/18 20:23) Electrocardiogram (03/09/18 19:50) Sodium Chlor 0.9% 1000 Ml Inj (Ns 1000 M (03/09/18 22:15) Admit Order (Ed Use Only) (03/09/18 22:20) Urinalysis - C+S If Indicated (03/09/18 22:13) Drug Screen, Random Urine (03/09/18 22:13) Consult Cardiology (03/09/18 ) Vital Signs (Adult) Q4H (03/09/18 22:13) Activity Oob With Assistance (03/09/18 22:13) Artificial Breeding Distributor / Telemetry .CONTINUOUS (03/09/18 22:13) Intake + Output SANJUANA.QSHIFT (03/09/18 22:13) Diet Heart Healthy (03/10/18 Breakfast) Sodium Chlor 0.9% 1000 Ml Inj (Ns 1000 M (03/09/18 23:00) Sodium Chloride 0.9% Flush (Ns Flush) (03/09/18 22:15) Sodium Chloride 0.9% Flush (Ns Flush) (03/10/18 09:00) Ondansetron Inj (Zofran Inj) (03/09/18 22:15) Comprehensive Metabolic Panel (03/10/18 06:00) Complete Blood Count With Diff (03/10/18 06:00) Troponin I (03/10/18 00:00) Troponin I (03/10/18 06:00) Heparin Inj (Heparin Inj) (03/10/18 09:00) Acetaminophen (Tylenol) (03/09/18 22:15) Acetamin-Hydrocod 325-5 Mg ([place] 5-325 (03/09/18 22:15) Docusate Sodium-Senna ([place]-Colace) (03/10/18 09:00) Magnesium Hydroxide Liq (Milk Of Magnesi (03/09/18 22:15) Sennosides (Senokot) (03/09/18 22:15) Bisacodyl Supp (Dulcolax Supp) (03/09/18 22:15) Lactulose Liq (Lactulose Liq) (03/09/18 22:15) Vital Signs (Adult) Q4H (03/09/18 22:13) Intake + Output SANJUANA.QSHIFT (03/09/18 22:13) Alcohol Withdrawal Asmt-Ciwa Q4HX18 (03/09/18 22:13) ^ Seizure Precautions (03/09/18 22:13) Folic Acid (Folate) (03/10/18 09:00) Thiamine (Vit B1) (Vitamin B1) (03/09/18 22:15) Multivitamins-Minerals Therap (Theragran (03/10/18 09:00) Consult Cm-Etoh Abuse Dc Plan (03/09/18 ) Flumazenil Inj (Romazicon Inj) (03/09/18 22:15) Lorazepam (Ativan) (03/09/18 22:15) Lorazepam Inj (Ativan Inj) (03/09/18 22:15) Lorazepam (Ativan) (03/09/18 22:15) Lorazepam Inj (Ativan Inj) (03/09/18 22:15) Lorazepam Inj (Ativan Inj) (03/09/18 22:15) Lorazepam Inj (Ativan Inj) (03/09/18 22:15) Haloperidol Inj (Haldol Inj) (03/09/18 22:15) Admit To Inpatient (03/09/18 ) Inpatient Certification (03/09/18 ) Aspirin Chew (Aspirin Chew) (03/10/18 09:00) Metoprolol Tartrate (Lopressor) (03/10/18 09:00) Morphine Inj (Morphine Inj) (03/09/18 23:00) Echo 2d Comp With Doppler (03/10/18 ) Labs Laboratory Tests Test 03/09/18 20:10 White Blood Count 7.6 TH/MM3 Red Blood Count 5.31 MIL/MM3 Hemoglobin 16.1 GM/DL Hematocrit 47.8 % Mean Corpuscular Volume 89.9 FL Mean Corpuscular Hemoglobin 30.3 PG Mean Corpuscular Hemoglobin Concent 33.7 % Red Cell Distribution Width 13.3 % Platelet Count 243 TH/MM3 Mean Platelet Volume 10.5 FL Neutrophils (%) (Auto) 64.0 % Lymphocytes (%) (Auto) 23.3 % Monocytes (%) (Auto) 9.5 % Eosinophils (%) (Auto) 2.2 % Basophils (%) (Auto) 1.0 % Neutrophils # (Auto) 4.9 TH/MM3 Lymphocytes # (Auto) 1.8 TH/MM3 Monocytes # (Auto) 0.7 TH/MM3 Eosinophils # (Auto) 0.2 TH/MM3 Basophils # (Auto) 0.1 TH/MM3 CBC Comment DIFF FINAL Differential Comment Prothrombin Time 10.7 SEC Prothromb Time International Ratio 1.1 RATIO Activated Partial Thromboplast Time 24.7 SEC Blood Urea Nitrogen 19 MG/DL Creatinine 1.08 MG/DL Random Glucose 104 MG/DL Total Protein 7.1 GM/DL Albumin 3.5 GM/DL Calcium Level 8.7 MG/DL Magnesium Level 2.2 MG/DL Alkaline Phosphatase 58 U/L Aspartate Amino Transf (AST/SGOT) 35 U/L Alanine Aminotransferase (ALT/SGPT) 28 U/L Total Bilirubin 0.4 MG/DL Sodium Level 142 MEQ/L Potassium Level 4.6 MEQ/L Chloride Level 109 MEQ/L Carbon Dioxide Level 21.6 MEQ/L Anion Gap 11 MEQ/L Estimat Glomerular Filtration Rate 68 ML/MIN Total Creatine Kinase 88 U/L Troponin I 0.04 NG/ML MDM Medical Decision Making Medical Screen Exam Complete: Yes Emergency Medical Condition: Yes Interpretation(s) EKG: NSR 83bpm. Normal axis. No ST segment elevation or depression. TWI III. Differential Diagnosis Arrhythmia vs. seizure vs. hypoglycemia Narrative Course 67yo M with 4 episodes of syncope in the last hour as per . Pt's heart rate was in the 80s and is at baseline mental status. At 8:10pm, I was informed by pt's nurse that pt's HR went into 190s, looks like SVT and he told him to vagal and his heart rate went down to 80s. When I went to reevaluate the patient, his heart rate was in the 80s. Pt took his metoprolol 50mg this morning and is due for his evening dose so I ordered it. Pt took the metoprolol 50mg PO. At 10pm, pt's heart rate went up to 170s and he started doing vagal maneuver and it came back down to 80s. Pt was not unconscious at this time. When I ask the if this was what happened, she said she is not sure because his head was slumped down and he didnt respond to her. Labs reviewed, no leukocytosis. H/H normal. BUN/creatinine 19/1.08. It is almost 2 to 1, so will hydrate with NS IVF. Troponin is negative at 0.04. CXR negative. CT brain negative for acute disease. Right sided craniotomy. Since pt is not well controlled with metoprolol 50mg BID and unsure of exact rhythm during these episodes of syncope, will keep pt on telemetry and observe overnight. Discussed with Dr. Story who could like pt to be admitted to [facility]. Critical Care Narrative Aggregate critical care time was 50 minutes. Time to perform other separately billable procedures was not included in the critical care time. My time did not include minutes spent treating any other patients simultaneously or on activities that did not directly contribute to the patient's treatment. The services I provided to this patient were to treat and/or prevent clinically significant deterioration that could result in: cardiovascular collapse or . I provided critical care services requiring my management, as noted below: Chart data review, documentation time, medication orders and management, vital sign assessments/reviewing monitor data, ordering and reviewing lab tests, ordering and interpreting/reviewing x-rays and diagnostic studies, care of the patient and discussion of the patient with the admitting physicians. Diagnosis Primary Impression: Syncope Qualified Codes: R55 - Syncope and collapse Admitting Information Admitting Physician Requests: Geovanna Hauser DO March 09, 2018 19:56
--- NOTE | 2018-03-09 20:07 | RADRPT ---
EXAM DATE/TIME: 03/09/2018 19:55 [facility] COMPARISON: No previous studies available for comparison. INDICATIONS : Syncopal episode today. MEDICAL HISTORY : None. SURGICAL HISTORY : None. ENCOUNTER: Initial ACUITY: 1 day PAIN SCORE: 0/10 LOCATION: Bilateral chest FINDINGS: A single view of the chest demonstrates the lungs to be symmetrically aerated without evidence of mas s, infiltrate or effusion. The cardiomediastinal contours are unremarkable. Osseous structures are intact. CONCLUSION: No acute disease. Saurav Bhatti MD on March 09, 2018 at 20:05 Board Certified Radiologist. This report was verified electronically.
[2018-03-09] MEDS ORDERED: METOPROLOL TARTRATE 50 MG TAB PO ONE (20:15)
[2018-03-09 20:36] LABS: INTERNATIONAL NORMALIZED RATIO 1.1 RATIO; PROTHROMBIN TIME - PATIENT 10.7 SEC (9.8-11.6)
[2018-03-09 20:55] LABS: ALBUMIN 3.5 GM/DL (3.4-5.0); ALKALINE PHOSPHATASE 58 U/L (45-117); ALT (GPT) 28 U/L (12-78); AST (GOT) 35 U/L (15-37); BICARBONATE 21.6 MEQ/L (21.0-32.0); BLOOD UREA NITROGEN 19 MG/DL (7-18); CALCIUM 8.7 MG/DL (8.5-10.1); CHLORIDE 109 MEQ/L (98-107); CREATININE 1.08 MG/DL (0.60-1.30); GLOMERULAR FILTRATION RATE 68 ML/MIN (>89); GLUCOSE,RANDOM 104 MG/DL (74-106); MAGNESIUM 2.2 MG/DL (1.5-2.5); SODIUM (NA) 142 MEQ/L (136-145); TOTAL BILIRUBIN ADULT 0.4 MG/DL (0.2-1.0); TOTAL PROTEIN 7.1 GM/DL (6.4-8.2); TROPONIN I 0.04 NG/ML (0.02-0.05)
--- NOTE | 2018-03-09 20:59 | RADRPT ---
EXAM DATE/TIME: 03/09/2018 20:47 [facility] COMPARISON: No previous studies available for comparison. INDICATIONS : Syncope RADIATION DOSE: 38.00 CTDIvol (mGy) MEDICAL HISTORY : Hypertension. Subdural hematoma SURGICAL HISTORY : None. ENCOUNTER: Initial ACUITY: 1 day PAIN SCALE: 0/10 LOCATION: cranial TECHNIQUE: Multiple contiguous axial images were obtained of the head. Using automated exposure control and adj ustment of the mA and/or kV according to patient size, radiation dose was kept as low as reasonably a chievable to obtain optimal diagnostic quality images. DICOM format image data is available electro nically for review and comparison. FINDINGS: CEREBRUM: The ventricles are normal for age. No evidence of midline shift, mass lesion, hemorrhage or acute in farction. No extra-axial fluid collections are seen. POSTERIOR FOSSA: The cerebellum and brainstem are intact. The 4th ventricle is midline. The cerebellopontine angle i s unremarkable. EXTRACRANIAL: The visualized portion of the orbits is intact. SKULL: Right craniotomy. No evidence of skull fracture. CONCLUSION: No acute disease. Right-sided craniotomy Saurav Bhatti MD on March 09, 2018 at 20:56 Board Certified Radiologist. This report was verified electronically.
[2018-03-09 21:44] VITALS: BP 105/61; PULSE 79; RESP 17; O2SAT 96
[2018-03-09 21:55] LABS: AUTOMATED NEUTROPHIL # 4.9 TH/MM3 (1.8-7.7); BASOPHIL # 0.1 TH/MM3 (0-0.2); EOSINOPHIL # 0.2 TH/MM3 (0-0.4); EOSINOPHIL % 2.2 % (0.0-4.0); HEMATOCRIT 47.8 % (39.0-51.0); HEMOGLOBIN 16.1 GM/DL (13.0-17.0); LYMPH % 23.3 % (9.0-44.0); LYMPHOCYTE # 1.8 TH/MM3 (1.0-4.8); MEAN CELL VOLUME 89.9 FL (80.0-100.0); MEAN CORPUSCULAR HEMOGLOBIN 30.3 PG (27.0-34.0); MEAN CORPUSCULAR HGB CONC 33.7 % (32.0-36.0); MEAN PLATELET VOLUME 10.5 FL (7.0-11.0); MONO % 9.5 % (0.0-8.0); MONOCYTE # 0.7 TH/MM3 (0-0.9); PLATELET COUNT 243 TH/MM3 (150-450); RED BLOOD COUNT 5.31 MIL/MM3 (4.50-5.90); RED CELL DISTRIBUTION WIDTH 13.3 % (11.6-17.2); WHITE BLOOD COUNT 7.6 TH/MM3 (4.0-11.0)
[2018-03-09] MEDS ORDERED: LORazepam 1 MG TAB PO PRN (22:15)
[2018-03-09] MEDS ORDERED: SENNOSIDES 8.6 MG TAB PO PRN (22:15)
[2018-03-09] MEDS ORDERED: SODIUM CHLOR 0.9% 1000 ML INJ 1,000 ML IV ONE (22:15)
[2018-03-09] MEDS ORDERED: ACETAMINOPHEN/HYDROcodone 325 MG/5 MG TAB PO PRN (22:15)
[2018-03-09] MEDS ORDERED: LACTULOSE SYRUP 20 GM/30 ML CUP PO PRN (22:15)
[2018-03-09] MEDS ORDERED: BISACODYL 10 MG SUPP RECTAL PRN (22:15)
[2018-03-09] MEDS ORDERED: SODIUM CHLORIDE 0.9% FLUSH 10 ML FLUSH IV FLUSH PRN (22:15)
[2018-03-09] MEDS ORDERED: LORazepam 2 MG TAB PO PRN (22:15)
[2018-03-09] MEDS ORDERED: MAGNESIUM HYDROXIDE SUSP 30 ML CUP PO PRN (22:15)
[2018-03-09] MEDS ORDERED: LORazepam 2 MG/ML VIAL IV PUSH PRN ×4 (22:15)
[2018-03-09] MEDS ORDERED: ONDANSETRON HCL 4 MG/2 ML VIAL IVP PRN (22:15)
[2018-03-09] MEDS ORDERED: ACETAMINOPHEN 325 MG TAB PO PRN (22:15)
[2018-03-09] MEDS ORDERED: HALOPERIDOL LACTATE 5 MG/ML AMP IM PRN (22:15)
[2018-03-09] MEDS ORDERED: FLUMAZENIL 0.5 MG/5 ML VIAL IV PUSH PRN (22:15)
--- NOTE | 2018-03-09 22:22 | HHI.HP ---
HPI Service [facility] Primary Care Physician Jaswinder Washington MD Admission Diagnosis Syncope, SVT Diagnoses: (1) Syncope Diagnosis: Principal (2) SVT (supraventricular tachycardia) Diagnosis: Principal (3) Dehydration Diagnosis: Principal (4) Alcohol use Diagnosis: Principal Travel History International Travel<30 Days: No Contact w/Intl Traveler <30 Da: No Traveled to Known Affected Are: No History of Present Illness This is a 67-year-old male with PMH of HTN, Hyperlipidemia, Paroxysmal SVT, h/o SDH and Alcohol Use who was brought into the ER for syncope x7. Pt poor historian regarding whether or not he actually had syncope, but states "I was out". Recent admit 03/06-03/08/18 for similar symptoms, s/p eval by Dr. Gomez, switched from Diltiazem to Metoprol w/ improvement. Today, pt states he was feeling fine. States they had an event in his neighborhood so he was pressure washing for 3.5 hours, mostly in the shade. Went to dinner w/ his where he usually has 3-4 beers, came home and had c/o chest pain followed by syncope x7. While in ER, pt w/ episode of SVT x2 s/p vagal maneuvers and Metoprolol PO w/ resolution. No c/o chest pain at this time. BP 119/74, HR 87, O2 sat 98% RA , Afebrile. CBC unremarkable. Chemistry unremarkable except for BUN 19. Troponin 0 0.04. INR 1.1. CXR with no acute findings. CT Head negative, right -sided craniotomy. Review of Systems Except as stated in HPI: all other systems reviewed are Neg ROS: 14 point review of systems otherwise negative. Past Family Social History Past Medical History PMH: HTN, Hyperlipidemia, Paroxysmal SVT, h/o SDH and Alcohol Use Past Surgical History PAST SURGICAL HISTORY: Appendectomy, Knee Surgery, Craniotomy for SDH Allergies: Coded Allergies: No Known Allergies (Unverified Allergy, Unknown, 03/09/18) Family History PAST FAMILY HISTORY: Reviewed. No h/o DM or CAD Social History PAST SOCIAL HISTORY: Drinks 3-4 beers daily with dinner. Negative for tobacco or drugs. Physical Exam Vital Signs Vital Signs Date Time Temp Pulse Resp B/P (MAP) Pulse Ox O2 Delivery O2 Flow Rate FiO2 03/09/18 21:44 79 17 105/61 (76) 96 Room Air 03/09/18 19:41 87 16 114/67 (83) 95 Room Air 03/09/18 19:38 89 19 95 Room Air 03/09/18 19:28 98.3 87 18 123/68 (86) 98 Physical Exam PE: GENERAL: Pleasant middle-aged white male in no acute distress. Smells of alcohol. HEENT: PERRLA, EOMI. No scleral icterus or conjunctival pallor. No lid lag or facial droop. CARDIOVASCULAR: Regular rate and rhythm. No obvious murmurs to auscultation. No chest tenderness to palpation. RESPIRATORY: No obvious rhonchi or wheezing. Clear to auscultation. Breath sounds equal bilaterally. GASTROINTESTINAL: Abdomen soft, non-tender, nondistended. BS normal. MUSCULOSKELETAL: Extremities without clubbing, cyanosis, or edema. No obvious deformities. NEUROLOGICAL: Awake, alert and oriented x4. No focal neurologic deficits. Moving both upper and lower extremities spontaneously. Laboratory Laboratory Tests Test 03/09/18 20:10 White Blood Count 7.6 Red Blood Count 5.31 Hemoglobin 16.1 Hematocrit 47.8 Mean Corpuscular Volume 89.9 Mean Corpuscular Hemoglobin 30.3 Mean Corpuscular Hemoglobin Concent 33.7 Red Cell Distribution Width 13.3 Platelet Count 243 Mean Platelet Volume 10.5 Neutrophils (%) (Auto) 64.0 Lymphocytes (%) (Auto) 23.3 Monocytes (%) (Auto) 9.5 Eosinophils (%) (Auto) 2.2 Basophils (%) (Auto) 1.0 Neutrophils # (Auto) 4.9 Lymphocytes # (Auto) 1.8 Monocytes # (Auto) 0.7 Eosinophils # (Auto) 0.2 Basophils # (Auto) 0.1 CBC Comment DIFF FINAL Differential Comment Prothrombin Time 10.7 Prothromb Time International Ratio 1.1 Activated Partial Thromboplast Time 24.7 Blood Urea Nitrogen 19 Creatinine 1.08 Random Glucose 104 Total Protein 7.1 Albumin 3.5 Calcium Level 8.7 Magnesium Level 2.2 Alkaline Phosphatase 58 Aspartate Amino Transf (AST/SGOT) 35 Alanine Aminotransferase (ALT/SGPT) 28 Total Bilirubin 0.4 Sodium Level 142 Potassium Level 4.6 Chloride Level 109 Carbon Dioxide Level 21.6 Anion Gap 11 Estimat Glomerular Filtration Rate 68 Total Creatine Kinase 88 Troponin I 0.04 Result Diagram: 03/09/18200903/09/182009 Sari VTE Risk Assessment Caprini VTE Risk Assessment: No/Low Risk (score <= 1) Caprini Risk Assessment Model Point Value = 1 Point Value = 2 Point Value = 3 Point Value = 5 Age 41-60 Minor surgery BMI > 25 kg/m2 Swollen legs Varicose veins or History of unexplained or recurrent spontaneous Oral contraceptives or hormone replacement Sepsis (< 1 month) Serious lung disease, including pneumonia (< 1 month) Abnormal pulmonary function Acute myocardial infarction Congestive heart failure (< 1 month) History of inflammatory bowel disease Medical patient at bed rest Age 61-74 Arthroscopic surgery Major open surgery (> 45 min) Laparoscopic surgery (> 45 min) Malignancy Confined to bed (> 72 hours) Immobilizing plaster cast Central venous access Age >= 75 History of VTE Family history of VTE Factor V Leiden Prothrombin [id number] Lupus anticoagulant Anticardiolipin antibodies Elevated serum homocysteine Heparin-induced thrombocytopenia Other congenital or acquired thrombophilia Stroke (< 1 month) Elective arthroplasty Hip, pelvis, or leg fracture Acute spinal cord injury (< 1 month) Prophylaxis Regimen Total Risk Factor Score Risk Level Prophylaxis Regimen 0-1 Low Early ambulation 2 Moderate Order ONE of the following: *Sequential Compression Device (SCD) *Heparin 5000 units SQ BID 3-4 Higher Order ONE of the following medications: *Heparin 5000 units SQ TID *Enoxaparin/Lovenox 40 mg SQ daily (WT < 150 kg, CrCl > 30 mL/min) *Enoxaparin/Lovenox 30 mg SQ daily (WT < 150 kg, CrCl > 10-29 mL/min) *Enoxaparin/Lovenox 30 mg SQ BID (WT < 150 kg, CrCl > 30 mL/min) AND/OR *Sequential Compression Device (SCD) 5 or more Highest Order ONE of the following medications: *Heparin 5000 units SQ TID (Preferred with Epidurals) *Enoxaparin/Lovenox 40 mg SQ daily (WT < 150 kg, CrCl > 30 mL/min) *Enoxaparin/Lovenox 30 mg SQ daily (WT < 150 kg, CrCl > 10-29 mL/min) *Enoxaparin/Lovenox 30 mg SQ BID (WT < 150 kg, CrCl > 30 mL/min) AND *Sequential Compression Device (SCD) Assessment and Plan Problem List: (1) Syncope ICD Code: R55 - Syncope and collapse Status: Acute (2) SVT (supraventricular tachycardia) ICD Code: I47.1 - Supraventricular tachycardia (3) Dehydration ICD Code: E86.0 - Dehydration (4) Alcohol use ICD Code: Z78.9 - Other specified health status Assessment and Plan A/P: 1. Syncope: reports syncope x7 today, recent admit for similar complaints w/ negative work up. CT Head w/ no acute findings, images reviewed by me. Admit to [facility], Telemetry, check serial cardiac enzymes to eval for underlying ischemia. IVF for hydration. 2. SVT: h/o SVT, recent admit 03/06 for same, s/p eval by Dr. Gomez, switched from Diltiazem to Metoprolol, s/p SVT x2 while in ER w/ good response after vagal maneuvers and Metoprolol PO. Will consult Dr. Gomez for further evaluation, likely ablation. Continue Metoprolol. Check serial cardiac enzymes. IVF for hydration. 3. Dehydration: BUN 19, GFR 68, IVF for hydration, repeat labs in am. 4. Alcohol Use: Drinks 3-4 beers daily w/ wine, CIWA, Seizure Precautions, MVT /Thiamine/Folate replacement. 5. DVT Prophylaxis: Heparin sq 6. Social work for d/c planning as needed. 7. Case discussed w/ ER physician at length, labs/records/imaging reviewed by me. Physician Certification 2 Midnight Certification Type: Admission for Inpatient Services Order for Inpatient Services The services are ordered in accordance with Medicare regulations or non- Medicare payer requirements, as applicable. In the case of services not specified as inpatient-only, they are appropriately provided as inpatient services in accordance with the 2-midnight benchmark. Estimated LOS (days): 2 days is the estimated time the patient will need to remain in the hospital, assuming treatment plan goals are met and no additional complications. Post-Hospital Plan: Not yet determined Problem Qualifiers (1) Syncope: Qualified Codes: R55 - Syncope and collapse Yolanda Story MD March 09, 2018 22:22
[2018-03-09] MEDS ORDERED: MORPHINE SULFATE 4 MG/ML INJ IV PRN (23:00)
[2018-03-09] MEDS: THIAMINE HCL 100 MG TAB PO SCH (23:08)
[2018-03-09] MEDS: SODIUM CHLOR 0.9% 1000 ML INJ 1,000 ML IV SCH (23:09)
[2018-03-10] VITALS (24 sets, daily range): BP systolic 113–145; BP diastolic 69–98; PULSE 54–155; RESP 12–20; TEMP 97.5–98.2; O2SAT 95–99
[2018-03-10] MEDS: SODIUM CHLOR 0.9% 1000 ML INJ 1,000 ML IV SCH ×2 (02:45→07:53)
[2018-03-10 03:16] LABS: AUTOMATED NEUTROPHIL # 3.3 TH/MM3 (1.8-7.7); BASOPHIL # 0.1 TH/MM3 (0-0.2); BASOPHIL % 1.2 % (0.0-2.0); EOSINOPHIL # 0.3 TH/MM3 (0-0.4); EOSINOPHIL % 4.1 % (0.0-4.0); HEMOGLOBIN 14.6 GM/DL (13.0-17.0); LYMPH % 32.8 % (9.0-44.0); LYMPHOCYTE # 2.1 TH/MM3 (1.0-4.8); MEAN CELL VOLUME 90.4 FL (80.0-100.0); MEAN CORPUSCULAR HEMOGLOBIN 30.8 PG (27.0-34.0); MEAN CORPUSCULAR HGB CONC 34.1 % (32.0-36.0); MEAN PLATELET VOLUME 9.7 FL (7.0-11.0); MONO % 12.3 % (0.0-8.0); MONOCYTE # 0.8 TH/MM3 (0-0.9); NEUT % 49.6 % (16.0-70.0); PLATELET COUNT 204 TH/MM3 (150-450); RED BLOOD COUNT 4.75 MIL/MM3 (4.50-5.90); RED CELL DISTRIBUTION WIDTH 13.5 % (11.6-17.2); WHITE BLOOD COUNT 6.6 TH/MM3 (4.0-11.0)
[2018-03-10 03:37] LABS: ALBUMIN 3.2 GM/DL (3.4-5.0); AST (GOT) 20 U/L (15-37); BICARBONATE 24.7 MEQ/L (21.0-32.0); BLOOD UREA NITROGEN 18 MG/DL (7-18); CALCIUM 7.9 MG/DL (8.5-10.1); CHLORIDE 111 MEQ/L (98-107); CREATININE 0.97 MG/DL (0.60-1.30); GLOMERULAR FILTRATION RATE 77 ML/MIN (>89); GLUCOSE,RANDOM 80 MG/DL (74-106); SODIUM (NA) 143 MEQ/L (136-145)
[2018-03-10 03:42] LABS: ALKALINE PHOSPHATASE 57 U/L (45-117); ALT (GPT) 24 U/L (12-78); TOTAL BILIRUBIN ADULT 0.4 MG/DL (0.2-1.0); TOTAL PROTEIN 6.6 GM/DL (6.4-8.2); TROPONIN I 0.07 NG/ML (0.02-0.05)
[2018-03-10] MEDS: PRAVASTATIN SOD 80 MG TAB PO SCH (08:38)
[2018-03-10] MEDS: METOPROLOL TARTRATE 50 MG TAB PO SCH ×2 (08:39→21:00)
[2018-03-10] MEDS: ASPIRIN 81 MG CHEW TAB CHEW SCH (08:39)
[2018-03-10] MEDS: THIAMINE HCL 100 MG TAB PO SCH (08:44)
[2018-03-10] MEDS: FOLIC ACID 1 MG TAB PO SCH (09:00)
[2018-03-10] MEDS: MULTIVITAMINS/MINERALS THERAPEUTIC TAB PO SCH (09:00)
[2018-03-10] MEDS: DOCUSATE SODIUM 50 MG/SENNA 8.6 MG TAB PO SCH ×2 (09:00→21:00)
[2018-03-10] MEDS ORDERED: NON-FORMULARY DRUG (Simvastatin 40 MG) PO SCH (09:00)
[2018-03-10] MEDS: SODIUM CHLORIDE 0.9% FLUSH 10 ML FLUSH IV FLUSH SCH ×2 (09:00→21:00)
[2018-03-10] MEDS: HEPARIN SODIUM - SQ 10,000 UNITS/ML VIAL SQ SCH ×2 (09:00→21:00)
--- NOTE | 2018-03-10 15:32 | HHI.PR ---
Subjective Remarks Patient says he is feeling all right. Denies any chest pain shortness of breath. No subsequent episodes of syncope today. Objective Vital Signs Date Time Temp Pulse Resp B/P (MAP) Pulse Ox O2 Delivery O2 Flow Rate FiO2 03/10/18 14:00 58 03/10/18 13:00 62 03/10/18 12:00 54 03/10/18 11:39 97.7 54 16 113/69 (84) 98 03/10/18 11:00 58 03/10/18 10:00 58 03/10/18 09:00 66 03/10/18 08:00 68 03/10/18 07:51 98.0 62 16 145/98 (114) 99 03/10/18 07:51 99 Room Air 03/10/18 07:00 68 03/10/18 04:41 98.2 57 16 126/78 (94) 99 03/10/18 04:34 Room Air 21 03/10/18 03:15 58 03/10/18 02:15 97.9 72 20 131/81 (98) 96 03/10/18 02:11 03/10/18 01:47 60 12 118/72 (87) 95 Room Air 03/09/18 21:44 79 17 105/61 (76) 96 Room Air 03/09/18 19:41 87 16 114/67 (83) 95 Room Air 03/09/18 19:38 89 19 95 Room Air 03/09/18 19:28 98.3 87 18 123/68 (86) 98 Result Diagram: 03/10/18 0236 03/10/18 0236 Objective Remarks GENERAL: She is sitting up in bed. Appears comfortable. Alert and oriented 3. SKIN: Warm and dry. HEAD: Normocephalic. EYES: No scleral icterus. No injection or drainage. NECK: Supple, trachea midline. No JVD. CARDIOVASCULAR: Regular rate and rhythm without murmurs, gallops, or rubs. RESPIRATORY: Breath sounds equal bilaterally. No accessory muscle use. GASTROINTESTINAL: Abdomen soft, non-tender, nondistended. MUSCULOSKELETAL: No cyanosis, or edema. BACK: Nontender without obvious deformity. No CVA tenderness. A/P Assessment and Plan //Syncope: reports syncope x7 today, recent admit for similar complaints w/ negative work up. CT Head w/ no acute findings, images reviewed by me. Admit to [facility], Telemetry, check serial cardiac enzymes to eval for underlying ischemia. IVF for hydration. = No further episodes. Continue on telemetry. Troponin mildly elevated. All of cardiology recommendations. // SVT: h/o SVT, recent admit 03/06 for same, s/p eval by Dr. Gomez, switched from Diltiazem to Metoprolol, s/p SVT x2 while in ER w/ good response after vagal maneuvers and Metoprolol PO. Will consult Dr. Gomez for further evaluation, likely ablation. Continue Metoprolol. Check serial cardiac enzymes. IVF for hydration. = Troponin slightly elevated. Follow-up cardiology recommendations. // Dehydration: BUN 19, GFR 68, IVF for hydration, repeat labs in am. = Improving on IV fluids. Continue IV fluids. //Alcohol Use: Drinks 3-4 beers daily w/ wine, CIWA, Seizure Precautions, MVT/ Thiamine/Folate replacement. //DVT Prophylaxis: Heparin sq Discharge Planning Follow-up cardiology recommendations. Clinton Canchola MD March 10, 2018 15:32
--- NOTE | 2018-03-10 17:02 | ECHRPT ---
Indication: CHEST PAIN CONCLUSIONS Normal left ventricular size. Mild concentric left ventricular hypertrophy. The left ventricular systolic function is hyperdynamic with an estimated ejection fraction about 55% . Mild aortic dilatation at the level of the sinuses of Valsalva. Mild mitral valve regurgitation. Mild aortic valve regurgitation. There is mild to moderate tricuspid valve regurgitation. The estimated pulmonary arterial pressure is 29.5 mmHg. BP: / HR: Rhythm: Sinus MEASUREMENTS (Male / Female) Normal Values Technical Quality:Fair 2D ECHO LVOT Diameter 2.8 cm Aortic Root Diameter 4.0 cm M-MODE AV Cusp Separation MM 2.4 cm DOPPLER AV Peak Velocity 86.9 cm/s AV Peak Gradient 3.0 mmHg AV Mean Gradient 2.0 mmHg AV Velocity Time Integral 19.2 cm LVOT Peak Velocity 54.9 cm/s LVOT Peak Gradient 1.2 mmHg LVOT Velocity Time Integral 12.6 cm AV Area Cont Eq vti 4.0 cm AV Area Cont Eq pk 3.9 cm Mitral E Point Velocity 57.8 cm/s Mitral A Point Velocity 69.1 cm/s Mitral E to A Ratio 0.8 LV E' Lateral Velocity 6.7 cm/s Mitral E to LV E' Lateral Ratio 8.6 LV E' Septal Velocity 5.5 cm/s Mitral E to LV E' Septal Ratio 10.6 TR Peak Velocity 221.0 cm/s TR Peak Gradient 19.5 mmHg Right Atrial Pressure 10.0 mmHg Pulmonary Artery Systolic Pressu 29.5 mmHg Right Ventricular Systolic Press 29.5 mmHg PV Peak Velocity 33.1 cm/s PV Peak Gradient 0.4 mmHg FINDINGS LEFT VENTRICLE Normal left ventricular size. Mild concentric left ventricular hypertrophy. The left ventricular systolic function is hyperdynamic with an estimated ejection fraction about 55% . RIGHT VENTRICLE Normal right ventricular size and systolic function. LEFT ATRIUM The left atrial size is normal. RIGHT ATRIUM The right atrial size is normal. ATRIAL SEPTUM No atrial level shunt is demonstrated by color flow Doppler interrogation. AORTA The aortic root and proximal ascending aorta are normal in size on limited imaging. Mild aortic dilatation at the level of the sinuses of Valsalva. MITRAL VALVE Mild mitral valve regurgitation. AORTIC VALVE Trileaflet aortic valve. Mild aortic valve regurgitation. TRICUSPID VALVE There is mild to moderate tricuspid valve regurgitation. The estimated pulmonary arterial pressure is 29.5 mmHg. PULMONARY VALVE No pulmonary valve regurgitation or stenosis. VESSELS The inferior vena cava is normal in size. PERICARDIUM No pericardial effusion. Sagastume E. Duncan MD (Electronically Signed) Final Date:10 Mar 2018 17:01
--- NOTE | 2018-03-10 17:08 | MB ---
cc: Karl Gomez MD, Ot[place] MD DATE: 03/10/2018 HISTORY OF PRESENT ILLNESS: Mr. Pop is a 67-year-old white male who was recently discharged from the hospital. He was diagnosed with supraventricular tachycardia and the last time his diltiazem was switched to metoprolol with no recurrent arrhythmias. The patient was discharged. He was working outside pressure [employer]. He went home and went to the restaurant, drinking a beer. He had multiple episodes of witnessed syncope. He was brought to the emergency room. He had 2 episodes of supraventricular tachycardia. The patient had chest pain yesterday, which was confirmed by his family. PAST MEDICAL HISTORY: Positive for hypertension, dyslipidemia, supraventricular tachycardia. PAST SURGICAL HISTORY: Appendectomy, knee surgery, a craniotomy for SDH MEDICATIONS: 1. Methocarbamol. 2. Simvastatin. 3. Metoprolol 50 mg every 12 hours. 4. Diltiazem. 5. Aspirin. 6. Naprosyn. 7. Omeprazole. 8. Cyanocobalamin. ALLERGIES: NONE. SOCIAL HISTORY: The patient drinks 3-4 beers daily. He does not smoke. Family is present. FAMILY HISTORY: Negative for heart disease. REVIEW OF SYSTEMS: Otherwise negative. PHYSICAL EXAMINATION: VITAL SIGNS: Blood pressure 129/75, pulse 62 and regular. HEENT: Negative, 2+ carotid upstrokes, no bruits. LUNGS: Clear. HEART: Regular with no murmur, gallop or rub. ABDOMEN: Soft. No bruits. EXTREMITIES: Without edema. 2+ distal pulses. NEUROLOGIC: Grossly nonfocal. CARDIOLOGY STUDIES: EKG was reviewed and showed a normal sinus rhythm with normal axis intervals. No acute changes. DIAGNOSES: 1. Syncope. 2. Paroxysmal supraventricular tachycardia with symptoms despite medical therapy. 3. Hypertension. 4. Dyslipidemia. 5. Excessive alcohol use. 6. History of craniotomy for subdural hemorrhage. 7. Unstable angina. DISPOSITION: Mr. Pop will be monitored on telemetry. We will obtain echocardiogram to evaluate his left ventricular function. He will be scheduled for cardiac catheterization and coronary intervention if necessary. We will then consider electrophysiology study and radiofrequency ablation of his supraventricular tachycardia. I will follow him for cardiology during his hospitalization. MD ALDEN Fisher/ , 04:42 PM , 05:07 PM FRIDA
[2018-03-10 19:33] LABS: BILIRUBIN, URINE NEG (NEG); BLOOD, URINE NEG (NEG); GLUCOSE,URINE NEG (NEG); KETONE, URINE NEG (NEG); NITRITE,URINE NEG (NEG); PH, URINE 5.5 (5.0-8.5); URINE COLOR YELLOW (YELLW/STRAW); URINE LEUKOCYTE ESTERASE NEG (NEG)
[2018-03-11] VITALS (25 sets, daily range): BP systolic 97–151; BP diastolic 65–91; PULSE 44–122; RESP 17–22; TEMP 97.5–98.4; O2SAT 96–99
[2018-03-11] MEDS: METOPROLOL TARTRATE 50 MG TAB PO SCH ×2 (08:29→20:22)
[2018-03-11] MEDS: PRAVASTATIN SOD 80 MG TAB PO SCH (08:29)
[2018-03-11] MEDS: FOLIC ACID 1 MG TAB PO SCH (08:29)
[2018-03-11] MEDS: THIAMINE HCL 100 MG TAB PO SCH (08:30)
[2018-03-11] MEDS: MULTIVITAMINS/MINERALS THERAPEUTIC TAB PO SCH (08:30)
[2018-03-11] MEDS: ASPIRIN 81 MG CHEW TAB CHEW SCH (08:31)
[2018-03-11] MEDS: DOCUSATE SODIUM 50 MG/SENNA 8.6 MG TAB PO SCH ×2 (08:33→20:22)
[2018-03-11] MEDS: SODIUM CHLORIDE 0.9% FLUSH 10 ML FLUSH IV FLUSH SCH ×2 (08:33→20:22)
--- NOTE | 2018-03-11 08:37 | EKG ---
Date Performed: 03/09/2018 Time Performed: 19:50:44 PTAGE: 67 years EKG: Sinus rhythm NORMAL ECG PREVIOUS TRACING : 03/07/2018 03.21 DOCTOR: Lisa Baig Interpretating Date/Time 03/11/2018 08:34:14
[2018-03-11] MEDS: HEPARIN SODIUM - SQ 10,000 UNITS/ML VIAL SQ SCH (09:14)
--- NOTE | 2018-03-11 15:45 | PD.CARD.PN ---
Subjective Subjective Remarks No CP or SOB, SVT this AM Objective Medications Current Medications Medications (Trade) Dose Ordered Sig/Quinton Route Start Time Stop Time Status Last Admin (NS Flush) 2 ml UNSCH PRN IV FLUSH 03/09/18 22:15 (NS Flush) 2 ml BID IV FLUSH 03/10/18 09:00 03/11/18 08:33 (Zofran Inj) 4 mg Q6H PRN IVP 03/09/18 22:15 (Tylenol) 650 mg Q6H PRN PO 03/09/18 22:15 (Wallis 5-325 Mg) 1 tab Q4H PRN PO 03/09/18 22:15 (Morphine Inj) 2 mg Q3H PRN IV 03/09/18 23:00 (Guadalupe-Colace) 1 tab BID PO 03/10/18 09:00 (Milk Of Magnesia Liq) 30 ml Q12H PRN PO 03/09/18 22:15 (Senokot) 17.2 mg Q12H PRN PO 03/09/18 22:15 (Dulcolax Supp) 10 mg DAILY PRN RECTAL 03/09/18 22:15 (Lactulose Liq) 30 ml DAILY PRN PO 03/09/18 22:15 (Folate) 1 mg DAILY PO 03/10/18 09:00 03/15/18 08:59 03/11/18 08:29 (Vitamin B1) 100 mg DAILY PO 03/09/18 22:15 03/11/18 08:30 (Theragran M Tab) 1 tab DAILY PO 03/10/18 09:00 03/15/18 08:59 03/11/18 08:30 (Romazicon Inj) 0.2 mg Q1M PRN IV PUSH 03/09/18 22:15 (Ativan) 1 mg Q4H PRN PO 03/09/18 22:15 03/11/18 08:30 (Ativan Inj) 1 mg Q4H PRN IV PUSH 03/09/18 22:15 (Ativan) 2 mg Q2H PRN PO 03/09/18 22:15 (Ativan Inj) 2 mg Q2H PRN IV PUSH 03/09/18 22:15 (Ativan Inj) 2 mg Q1H PRN IV PUSH 03/09/18 22:15 (Ativan Inj) 2 mg Q15M PRN IV PUSH 03/09/18 22:15 (Haldol Inj) 2 mg Q15M PRN IM 03/09/18 22:15 (Aspirin Chew) 81 mg DAILY CHEW 03/10/18 09:00 03/11/18 08:31 (Lopressor) 50 mg Q12HR PO 03/10/18 09:00 03/11/18 08:29 (Pravachol) 80 mg DAILY PO 03/10/18 09:00 03/11/18 08:29 Vital Signs / I&O Vital Signs Date Time Temp Pulse Resp B/P (MAP) Pulse Ox O2 Delivery O2 Flow Rate FiO2 03/11/18 13:00 86 03/11/18 12:00 60 03/11/18 11:46 98.0 69 17 97/65 (76) 97 03/11/18 11:00 60 03/11/18 10:00 82 03/11/18 09:00 122 03/11/18 08:00 44 03/11/18 08:00 98.0 69 22 151/89 (109) 96 03/11/18 08:00 96 Room Air 03/11/18 07:00 46 03/11/18 06:00 50 03/11/18 05:00 60 03/11/18 04:00 52 03/11/18 04:00 97.7 55 18 122/74 (90) 96 03/11/18 03:00 55 03/11/18 02:00 48 03/11/18 01:00 46 03/11/18 00:00 97.5 51 18 130/91 (104) 99 03/11/18 00:00 56 03/10/18 23:00 54 03/10/18 22:00 56 03/10/18 21:00 64 03/10/18 20:00 96 Room Air 03/10/18 20:00 78 03/10/18 20:00 97.5 60 18 119/76 (90) 96 03/10/18 19:00 68 03/10/18 18:36 155 03/10/18 18:00 68 03/10/18 17:00 60 03/10/18 16:00 62 I/O 03/10/18 03/10/18 03/10/18 03/11/18 03/11/18 03/11/18 07:00 15:00 23:00 07:00 15:00 23:00 Intake Total 486 ml 1440 ml Output Total 2400 ml 390 ml Balance 486 ml -960 ml -390 ml Intake Oral 1440 ml IV Total 486 ml Output Urine Total 2400 ml 390 ml Physical Exam GENERAL: In NAD. SKIN: Warm and dry. HEAD: Normocephalic. EYES: No scleral icterus. No injection or drainage. NECK: Supple, trachea midline. No JVD or lymphadenopathy. CARDIOVASCULAR: Regular rate and rhythm without murmurs, gallops, or rubs. RESPIRATORY: Breath sounds equal bilaterally. No accessory muscle use. GASTROINTESTINAL: Abdomen soft, non-tender, nondistended. MUSCULOSKELETAL: No cyanosis, trace edema. Laboratory Laboratory Tests Test 03/10/18 18:12 Urine Color YELLOW Urine Turbidity CLEAR Urine pH 5.5 Urine Specific [place] 1.017 Urine Protein NEG mg/dL Urine Glucose (UA) NEG mg/dL Urine Ketones NEG mg/dL Urine Occult Blood NEG Urine Nitrite NEG Urine Bilirubin NEG Urine Urobilinogen LESS THAN 2.0 MG/DL Urine Leukocyte Esterase NEG Microscopic Urinalysis Comment CULT NOT INDICATED Urine Opiates Screen NEG Urine Barbiturates Screen NEG Urine Amphetamines Screen NEG Urine Benzodiazepines Screen NEG Urine Cocaine Screen NEG Urine Cannabinoids Screen NEG Assessment and Plan Problem List: (1) Angina at rest ICD Codes: I20.8 - Other forms of angina pectoris (2) SVT (supraventricular tachycardia) ICD Codes: I47.1 - Supraventricular tachycardia (3) Syncope ICD Codes: R55 - Syncope and collapse Status: Acute (4) HTN (hypertension) ICD Codes: I10 - Essential (primary) hypertension (5) Dyslipidemia ICD Codes: E78.5 - Hyperlipidemia, unspecified (6) EtOH dependence ICD Codes: F10.20 - Alcohol dependence, uncomplicated (7) Subdural hematoma ICD Codes: S06.5X9A - Traumatic subdural hemorrhage with loss of consciousness of unspecified duration, initial encounter Assessment and Plan No recurrent angina. Recurrent SVT this AM. Continue beta tommy. Cath on Tue, poss PCI. EPS/RFA tentatively on Tue. D/w pt and . Problem Qualifiers (1) Syncope: Qualified Codes: R55 - Syncope and collapse Karl Gomez MD March 11, 2018 15:45
--- NOTE | 2018-03-11 16:49 | HHI.PR ---
Subjective Remarks Patient says he is feeling well. No chest pain today. Denies any nausea or vomiting. Had a bowel movement today Objective Vital Signs Date Time Temp Pulse Resp B/P (MAP) Pulse Ox O2 Delivery O2 Flow Rate FiO2 03/11/18 16:00 62 03/11/18 15:00 98.2 60 18 110/68 (82) 98 03/11/18 15:00 60 03/11/18 14:00 58 03/11/18 13:00 86 03/11/18 12:00 60 03/11/18 11:46 98.0 69 17 97/65 (76) 97 03/11/18 11:00 60 03/11/18 10:00 82 03/11/18 09:00 122 03/11/18 08:00 44 03/11/18 08:00 98.0 69 22 151/89 (109) 96 03/11/18 08:00 96 Room Air 03/11/18 07:00 46 03/11/18 06:00 50 03/11/18 05:00 60 03/11/18 04:00 52 03/11/18 04:00 97.7 55 18 122/74 (90) 96 03/11/18 03:00 55 03/11/18 02:00 48 03/11/18 01:00 46 03/11/18 00:00 97.5 51 18 130/91 (104) 99 03/11/18 00:00 56 03/10/18 23:00 54 03/10/18 22:00 56 03/10/18 21:00 64 03/10/18 20:00 96 Room Air 03/10/18 20:00 78 03/10/18 20:00 97.5 60 18 119/76 (90) 96 03/10/18 19:00 68 03/10/18 18:36 155 03/10/18 18:00 68 03/10/18 17:00 60 I/O 03/10/18 03/10/18 03/10/18 03/11/18 03/11/18 03/11/18 07:00 15:00 23:00 07:00 15:00 23:00 Intake Total 486 ml 1440 ml Output Total 2400 ml 390 ml Balance 486 ml -960 ml -390 ml Intake Oral 1440 ml IV Total 486 ml Output Urine Total 2400 ml 390 ml Result Diagram: 03/10/18 0236 03/10/18 0236 Objective Remarks GENERAL: She is sitting up in bed. Appears comfortable. Alert and oriented 3. No changes on exam SKIN: Warm and dry. HEAD: Normocephalic. EYES: No scleral icterus. No injection or drainage. NECK: Supple, trachea midline. No JVD. CARDIOVASCULAR: Regular rate and rhythm without murmurs, gallops, or rubs. RESPIRATORY: Breath sounds equal bilaterally. No accessory muscle use. GASTROINTESTINAL: Abdomen soft, non-tender, nondistended. MUSCULOSKELETAL: No cyanosis, or edema. BACK: Nontender without obvious deformity. No CVA tenderness. A/P Assessment and Plan //Syncope: reports syncope x7 today, recent admit for similar complaints w/ negative work up. CT Head w/ no acute findings, images reviewed by me. Admit to [facility]IC, Telemetry, check serial cardiac enzymes to eval for underlying ischemia. IVF for hydration. = No further episodes. Continue on telemetry. Troponin mildly elevated. All of cardiology recommendations. // SVT: h/o SVT, recent admit 03/06 for same, s/p eval by Dr. Gomez, switched from Diltiazem to Metoprolol, s/p SVT x2 while in ER w/ good response after vagal maneuvers and Metoprolol PO. Will consult Dr. Gomez for further evaluation, likely ablation. Continue Metoprolol. Check serial cardiac enzymes. IVF for hydration. = Troponin slightly elevated. Follow-up cardiology recommendations. = Echocardiogram 55% ejection fraction. Mild aortic regurgitation. Cardiology following. Plan for catheterization on Tuesday, possible ablation following. Appreciate cardiology assistance // Dehydration: BUN 19, GFR 68, IVF for hydration, repeat labs in am. = Resolved. Discontinue IV fluids. Encourage p.o. intake. //Alcohol Use: Drinks 3-4 beers daily w/ wine, CIWA, Seizure Precautions, MVT/ Thiamine/Folate replacement. = Continue on Cipro. Does not appear to be withdrawing. //DVT Prophylaxis: Heparin sq Discharge Planning Cardiology planning for further workup, catheterization, possible ablation. Hopefully home possibly Tuesday Clinton Canchola MD March 11, 2018 16:49
[2018-03-12] VITALS (25 sets, daily range): BP systolic 95–129; BP diastolic 54–77; PULSE 47–82; RESP 18–20; TEMP 98.2–98.4; O2SAT 96–97
[2018-03-12] MEDS: METOPROLOL TARTRATE 50 MG TAB PO SCH ×2 (09:15→20:38)
[2018-03-12] MEDS: PRAVASTATIN SOD 80 MG TAB PO SCH (09:15)
[2018-03-12] MEDS: MULTIVITAMINS/MINERALS THERAPEUTIC TAB PO SCH (09:15)
[2018-03-12] MEDS: ASPIRIN 81 MG CHEW TAB CHEW SCH (09:15)
[2018-03-12] MEDS: THIAMINE HCL 100 MG TAB PO SCH (09:15)
[2018-03-12] MEDS: FOLIC ACID 1 MG TAB PO SCH (09:15)
[2018-03-12] MEDS: DOCUSATE SODIUM 50 MG/SENNA 8.6 MG TAB PO SCH ×2 (09:15→20:42)
[2018-03-12] MEDS: SODIUM CHLORIDE 0.9% FLUSH 10 ML FLUSH IV FLUSH SCH ×2 (09:16→20:44)
--- NOTE | 2018-03-12 14:45 | PD.CARD.PN ---
Subjective Subjective Remarks No CP or SOB, no SVT on metoprolol Objective Medications Current Medications Medications (Trade) Dose Ordered Sig/Quinton Route Start Time Stop Time Status Last Admin (NS Flush) 2 ml UNSCH PRN IV FLUSH 03/09/18 22:15 (NS Flush) 2 ml BID IV FLUSH 03/10/18 09:00 03/12/18 09:16 (Zofran Inj) 4 mg Q6H PRN IVP 03/09/18 22:15 (Tylenol) 650 mg Q6H PRN PO 03/09/18 22:15 ([place] 5-325 Mg) 1 tab Q4H PRN PO 03/09/18 22:15 (Morphine Inj) 2 mg Q3H PRN IV 03/09/18 23:00 ([place]upe-Colace) 1 tab BID PO 03/10/18 09:00 (Milk Of Magnesia Liq) 30 ml Q12H PRN PO 03/09/18 22:15 (Senokot) 17.2 mg Q12H PRN PO 03/09/18 22:15 (Dulcolax Supp) 10 mg DAILY PRN RECTAL 03/09/18 22:15 (Lactulose Liq) 30 ml DAILY PRN PO 03/09/18 22:15 (Folate) 1 mg DAILY PO 03/10/18 09:00 03/15/18 08:59 03/12/18 09:15 (Vitamin B1) 100 mg DAILY PO 03/09/18 22:15 03/12/18 09:15 (Theragran M Tab) 1 tab DAILY PO 03/10/18 09:00 03/15/18 08:59 03/12/18 09:15 (Romazicon Inj) 0.2 mg Q1M PRN IV PUSH 03/09/18 22:15 (Ativan) 1 mg Q4H PRN PO 03/09/18 22:15 03/11/18 08:30 (Ativan Inj) 1 mg Q4H PRN IV PUSH 03/09/18 22:15 (Ativan) 2 mg Q2H PRN PO 03/09/18 22:15 (Ativan Inj) 2 mg Q2H PRN IV PUSH 03/09/18 22:15 (Ativan Inj) 2 mg Q1H PRN IV PUSH 03/09/18 22:15 (Ativan Inj) 2 mg Q15M PRN IV PUSH 03/09/18 22:15 (Haldol Inj) 2 mg Q15M PRN IM 03/09/18 22:15 (Aspirin Chew) 81 mg DAILY CHEW 03/10/18 09:00 03/12/18 09:15 (Lopressor) 50 mg Q12HR PO 03/10/18 09:00 03/12/18 09:15 (Pravachol) 80 mg DAILY PO 03/10/18 09:00 03/12/18 09:15 Vital Signs / I&O Vital Signs Date Time Temp Pulse Resp B/P (MAP) Pulse Ox O2 Delivery O2 Flow Rate FiO2 03/12/18 14:00 60 03/12/18 13:05 98.3 61 18 129/77 (94) 97 03/12/18 13:00 68 03/12/18 12:00 66 03/12/18 11:00 55 03/12/18 10:00 58 03/12/18 09:09 98.4 68 19 103/64 (77) 97 03/12/18 09:09 97 Room Air 03/12/18 09:00 74 03/12/18 08:00 76 03/12/18 07:00 47 03/12/18 06:26 49 03/12/18 05:54 48 03/12/18 04:08 47 03/12/18 03:10 98.2 56 18 95/54 (68) 96 03/12/18 03:10 55 03/12/18 02:17 55 03/12/18 01:43 50 03/12/18 00:11 54 03/11/18 23:24 65 03/11/18 23:24 98.3 63 18 118/84 (95) 97 03/11/18 22:30 67 03/11/18 21:24 62 03/11/18 20:34 60 03/11/18 19:20 98.4 66 19 108/72 (84) 97 03/11/18 19:20 62 03/11/18 19:20 Room Air 03/11/18 18:02 82 03/11/18 17:47 72 03/11/18 16:00 62 03/11/18 15:00 98.2 60 18 110/68 (82) 98 03/11/18 15:00 60 I/O 03/11/18 03/11/18 03/11/18 03/12/18 03/12/18 03/12/18 07:00 15:00 23:00 07:00 15:00 23:00 Intake Total 1440 ml Output Total 390 ml 200 ml 1350 ml Balance -390 ml -200 ml 90 ml Intake Oral 1440 ml Output Urine Total 390 ml 200 ml 1350 ml # Voids 2 Physical Exam GENERAL: In NAD. SKIN: Warm and dry. HEAD: Normocephalic. EYES: No scleral icterus. No injection or drainage. NECK: Supple, trachea midline. No JVD or lymphadenopathy. CARDIOVASCULAR: Regular rate and rhythm without murmurs, gallops, or rubs. RESPIRATORY: Breath sounds equal bilaterally. No accessory muscle use. GASTROINTESTINAL: Abdomen soft, non-tender, nondistended. MUSCULOSKELETAL: No cyanosis, trace edema. Assessment and Plan Problem List: (1) Angina at rest ICD Codes: I20.8 - Other forms of angina pectoris (2) SVT (supraventricular tachycardia) ICD Codes: I47.1 - Supraventricular tachycardia (3) Syncope ICD Codes: R55 - Syncope and collapse Status: Acute (4) HTN (hypertension) ICD Codes: I10 - Essential (primary) hypertension (5) Dyslipidemia ICD Codes: E78.5 - Hyperlipidemia, unspecified (6) EtOH dependence ICD Codes: F10.20 - Alcohol dependence, uncomplicated (7) Subdural hematoma ICD Codes: S06.5X9A - Traumatic subdural hemorrhage with loss of consciousness of unspecified duration, initial encounter Assessment and Plan Remains stable. No recurrent angina or SVT. Continue beta tommy. Cath/PCI tomorrow. EPS/RFA tentatively on Tue. Problem Qualifiers (1) Syncope: Qualified Codes: R55 - Syncope and collapse Karl Gomez MD March 12, 2018 14:45
--- NOTE | 2018-03-12 15:53 | HHI.PR ---
Subjective Remarks Patient again says he is feeling well. Denies any chest pain or shortness of breath. Denies any nausea or vomiting. Denies constipation. Objective Vital Signs Date Time Temp Pulse Resp B/P (MAP) Pulse Ox O2 Delivery O2 Flow Rate FiO2 03/12/18 14:00 60 03/12/18 13:05 98.3 61 18 129/77 (94) 97 03/12/18 13:00 68 03/12/18 12:00 66 03/12/18 11:00 55 03/12/18 10:00 58 03/12/18 09:09 98.4 68 19 103/64 (77) 97 03/12/18 09:09 97 Room Air 03/12/18 09:00 74 03/12/18 08:00 76 03/12/18 07:00 47 03/12/18 06:26 49 03/12/18 05:54 48 03/12/18 04:08 47 03/12/18 03:10 98.2 56 18 95/54 (68) 96 03/12/18 03:10 55 03/12/18 02:17 55 03/12/18 01:43 50 03/12/18 00:11 54 03/11/18 23:24 65 03/11/18 23:24 98.3 63 18 118/84 (95) 97 03/11/18 22:30 67 03/11/18 21:24 62 03/11/18 20:34 60 03/11/18 19:20 98.4 66 19 108/72 (84) 97 03/11/18 19:20 62 03/11/18 19:20 Room Air 03/11/18 18:02 82 03/11/18 17:47 72 03/11/18 16:00 62 I/O 03/11/18 03/11/18 03/11/18 03/12/18 03/12/18 03/12/18 07:00 15:00 23:00 07:00 15:00 23:00 Intake Total 1440 ml Output Total 390 ml 200 ml 1350 ml Balance -390 ml -200 ml 90 ml Intake Oral 1440 ml Output Urine Total 390 ml 200 ml 1350 ml # Voids 2 Result Diagram: 03/10/18 0236 03/10/18 0236 Objective Remarks GENERAL: She is sitting up in bed. Appears comfortable. Alert and oriented 3. Again, no changes on exam SKIN: Warm and dry. HEAD: Normocephalic. EYES: No scleral icterus. No injection or drainage. NECK: Supple, trachea midline. No JVD. CARDIOVASCULAR: Regular rate and rhythm without murmurs, gallops, or rubs. RESPIRATORY: Breath sounds equal bilaterally. No accessory muscle use. GASTROINTESTINAL: Abdomen soft, non-tender, nondistended. MUSCULOSKELETAL: No cyanosis, or edema. BACK: Nontender without obvious deformity. No CVA tenderness. A/P Assessment and Plan //Syncope: reports syncope x7 today, recent admit for similar complaints w/ negative work up. CT Head w/ no acute findings, images reviewed by me. Admit to [facility], Telemetry, check serial cardiac enzymes to eval for underlying ischemia. IVF for hydration. = No further episodes. Continue on telemetry. Troponin mildly elevated. Follow-up cardiology recommendations. // SVT: h/o SVT, recent admit 03/06 for same, s/p eval by Dr. Gomez, switched from Diltiazem to Metoprolol, s/p SVT x2 while in ER w/ good response after vagal maneuvers and Metoprolol PO. Will consult Dr. Gomez for further evaluation, likely ablation. Continue Metoprolol. Check serial cardiac enzymes. IVF for hydration. = Troponin slightly elevated. Follow-up cardiology recommendations. = Echocardiogram 55% ejection fraction. Mild aortic regurgitation. Cardiology following. = Plan for catheterization on Tuesday, possible ablation following. Appreciate cardiology assistance // Dehydration: BUN 19, GFR 68, IVF for hydration, repeat labs in am. = Resolved. Discontinue IV fluids. Encourage p.o. intake. //Alcohol Use: Drinks 3-4 beers daily w/ wine, CIWA, Seizure Precautions, MVT/ Thiamine/Folate replacement. = Continue on Cipro. Does not appear to be withdrawing. = No signs of withdrawal currently. Discontinue CIWA protocol. //DVT Prophylaxis: Patient ambulating. Otherwise and coagulation as per cardiology. Discharge Planning Cardiology planning for further workup, catheterization, possible ablation. Hopefully home possibly Tuesday Clinton Canchola MD March 12, 2018 15:53
[2018-03-13] VITALS (23 sets, daily range): BP systolic 109–125; BP diastolic 67–84; PULSE 44–86; RESP 16–20; TEMP 97.2–98.2; O2SAT 96–98
[2018-03-13] MEDS: SODIUM CHLORIDE 0.9% FLUSH 10 ML FLUSH IV FLUSH SCH ×2 (09:00→22:23)
[2018-03-13] MEDS: DOCUSATE SODIUM 50 MG/SENNA 8.6 MG TAB PO SCH ×2 (09:00→21:00)
[2018-03-13] MEDS: METOPROLOL TARTRATE 50 MG TAB PO SCH (09:17)
[2018-03-13] MEDS: PRAVASTATIN SOD 80 MG TAB PO SCH (09:17)
[2018-03-13] MEDS: ASPIRIN 81 MG CHEW TAB CHEW SCH (09:18)
--- NOTE | 2018-03-13 10:57 | HHI.PR ---
Subjective Remarks Patient says he is feeling well. No chest pain or shortness of breath. He is awaiting procedure this afternoon. Objective Vital Signs Date Time Temp Pulse Resp B/P (MAP) Pulse Ox O2 Delivery O2 Flow Rate FiO2 03/13/18 07:00 97.7 53 17 122/71 (88) 97 03/13/18 06:00 48 03/13/18 05:00 47 03/13/18 04:00 44 03/13/18 03:00 54 03/13/18 02:00 48 03/13/18 01:00 59 03/13/18 00:00 98.1 65 20 125/79 (94) 98 03/13/18 00:00 Room Air 03/13/18 00:00 65 03/12/18 23:00 54 03/12/18 22:00 55 03/12/18 21:00 56 03/12/18 20:00 98.4 82 20 123/70 (87) 96 03/12/18 20:00 Room Air 03/12/18 20:00 82 03/12/18 18:00 60 03/12/18 17:00 60 03/12/18 16:00 56 03/12/18 15:00 98.2 60 18 129/73 (91) 97 03/12/18 15:00 58 03/12/18 14:00 60 03/12/18 13:05 98.3 61 18 129/77 (94) 97 03/12/18 13:00 68 03/12/18 12:00 66 03/12/18 11:00 55 I/O 03/12/18 03/12/18 03/12/18 03/13/18 03/13/18 03/13/18 07:00 15:00 23:00 07:00 15:00 23:00 Intake Total 1440 ml 720 ml 960 ml Output Total 1350 ml 1100 ml 1200 ml Balance 90 ml -380 ml -240 ml Intake Oral 1440 ml 720 ml 960 ml Output Urine Total 1350 ml 1100 ml 1200 ml # Voids 2 # Bowel Movements 1 1 Result Diagram: 03/10/18 0236 03/10/18 0236 Objective Remarks GENERAL: he is sitting up in chair at bedside. Appears comfortable. Alert and oriented 3. no changes on exam SKIN: Warm and dry. HEAD: Normocephalic. EYES: No scleral icterus. No injection or drainage. NECK: Supple, trachea midline. No JVD. CARDIOVASCULAR: Regular rate and rhythm without murmurs, gallops, or rubs. RESPIRATORY: Breath sounds equal bilaterally. No accessory muscle use. GASTROINTESTINAL: Abdomen soft, non-tender, nondistended. MUSCULOSKELETAL: No cyanosis, or edema. BACK: Nontender without obvious deformity. No CVA tenderness. A/P Assessment and Plan //Syncope: reports syncope x7 today, recent admit for similar complaints w/ negative work up. CT Head w/ no acute findings, images reviewed by me. Admit to [facility], Telemetry, check serial cardiac enzymes to eval for underlying ischemia. IVF for hydration. = No further episodes. Continue on telemetry. Troponin mildly elevated. Follow-up cardiology recommendations. = 03/13. Planned catheterization this afternoon. Appreciate cardiology assistance. // SVT: h/o SVT, recent admit 03/06 for same, s/p eval by Dr. Gomez, switched from Diltiazem to Metoprolol, s/p SVT x2 while in ER w/ good response after vagal maneuvers and Metoprolol PO. Will consult Dr. Gomez for further evaluation, likely ablation. Continue Metoprolol. Check serial cardiac enzymes. IVF for hydration. = Troponin slightly elevated. Follow-up cardiology recommendations. = Echocardiogram 55% ejection fraction. Mild aortic regurgitation. Cardiology following. = Plan for catheterization on Tuesday, possible ablation following. Appreciate cardiology assistance // Dehydration: BUN 19, GFR 68, IVF for hydration, repeat labs in am. = Resolved. Discontinue IV fluids. Encourage p.o. intake. //Alcohol Use: Drinks 3-4 beers daily w/ wine, CIWA, Seizure Precautions, MVT/ Thiamine/Folate replacement. = Continue on Cipro. Does not appear to be withdrawing. = No signs of withdrawal currently. Discontinue CIWA protocol. //DVT Prophylaxis: Patient ambulating. Otherwise and coagulation as per cardiology. Discharge Planning Cardiology planning for further workup, catheterization, possible ablation. Hopefully home possibly Tuesday Clinton Canchola MD March 13, 2018 10:56
[2018-03-13] MEDS ORDERED: HEPARIN-NS/PF FLUSH BAG 2,000 ML IV FLUSH ONE (12:49)
[2018-03-13] MEDS ORDERED: HEPARIN-NS/PF FLUSH BAG 1,000 ML IV FLUSH ONE (12:50)
[2018-03-13] MEDS ORDERED: MIDAZOLAM HCL 5 MG/5 ML VIAL ONE (13:10)
[2018-03-13] MEDS ORDERED: NITROGLYCERIN INJ 5 ML ONE (13:19)
--- NOTE | 2018-03-13 14:01 | CATHPROC ---
[employer] HIS Report Study Information Study Number Admission Scheduled Start Study Start [id number] Mar 09 2018 10:22PM 03/13/2018 Mar 13 2018 1:00PM [place] [facility] Cardiac Catheterization Admit Source Facility Department Emergency department [facility] [place] [facility] Physician and Clinical Staff Initial Karl Galindo Applications Processor Lorenzo RN, Palomo Recorder Afia Madrigal BSN Scrub Stevo Luna RCIS(BS) Procedures Performed Procedure Location (Site) Vessel Name Angiogram LV LV Ventricle Coronary Angiograms LCA Left Coronary Coronary Angiograms RCA Right Coronary L Heart Cath Equipment Time Sr Technical Sales Consultant Description Size Mfg Part Number Used/Scraped TRANSDUCER, TRRICARDO [id number] 13:03 [employer] CHOW[employer]URY * Used W/STOCKCOCK *[id number] [id number] *[id number] [id number] *[id number] [id number] *[id number] 13:03 [employer] PACK, CCL CUSTOM * Used *[id number] 13:03 [employer] PACER PEN, SKIN DUAL W/ RULER * Used *[id number] 13:03 [employer] WIRE, 3MMJ .035 180CM 180CM Used *[id number] PROBE COVER, STERILE [id number] 13:03 [employer] * Used ULTRASOUND W/ GEL *[id number] 13:03 NAMIC MANIFOLD, 4 PORT * Used *[id number] 13:03 NAMIC TUBING, HIGH PRESSURE 48" 48" Used *[id number] 13:03 NYCOMED OMNIPAQUE, 350 MG, 150ML 150ML [id number] Used 13:38 NYCOMED OMNIPAQUE, 350 MG, 50ML 50ML [id number] Used [id number] 13:03 [employer]ERT MED[employer] BLANKET,WARM AIR CCL * Used *[id number] 13:03 TERUMO MEDICAL SHEATH, FR5 TERUMO (10CM) FR 5 Used *[id number] History: Current Medications Medication Dosage/Unit Route Frequency Last Date/Time Taken Beta Danitza ASA 162 mg 03/13/2018 History: Allergies Allergy Reaction No Known Allergies History: Risk Factors Family History of Hypertension Dyslipidemia Previous [place] Previous Heart Failure Premature CAD Yes Yes No No No Prior Valve Prior PCI Prior CABG Surgery No No No Cerebrovascular Peripheral Artery Chronic Lung On Dialysis Diabetes Disease Disease Disease No No No No No History: Stress Tests Stress or Imaging Studies Performed No History: Other Current Smoker Method Quit Packs a Day Years Used Pack Years No Cigarettes 38 Years Ago 1 5 5 Labs Hgb (g/dl) Hct (%) WBC (l/cumm) Platelets (thousands) 11.60-17.00 35.00-51.00 4.00-11.00 150.00-450.00 14.6 43 6.6 204 Glucose (mg/dl) BUN (mg/dl) Creatinine (mg/dl) BUN:Creatinine (1:x) 74.00-106.00 7.00-18.00 0.50-1.30 10.00-20.00 80 18 0.9 20 Na (meq/l) K (meq/l) 136.00-145.00 3.50-5.10 143 4.2 INR (PTT:PT) 0.90-1.10 1.1 Troponin I (ng/ml) CPK-MB (ng/ML) 0.02-0.05 0.50-3.60 0.04 Not Drawn Medication Medication Total Dose (Bolus/Oral) Medication Total Dosage/Unit 1% XYLOCAINE 20 mL FENTANYL 50 mcg VERSED 2 mg Medications (Bolus/Oral) Medication Time Given Dosage/Unit Administered By Reason VERSED 03/13/2018 1:24:06 PM 2 mg Palomo Ventura RN 2 mg VERSED given in lab by Palomo Ventura RN via Peripheral IV. Ordered by Karl Gomez. FENTANYL 03/13/2018 1:25:14 PM 50 mcg Palomo Ventura RN 50 mcg FENTANYL given in lab by Palomo Ventura RN via Peripheral IV. Ordered by Karl Gomez. 1% XYLOCAINE 03/13/2018 1:30:50 PM 20 mL Stevo Luna 20 mL 1% XYLOCAINE given in lab by Stevo Luna RCIS(BS) in Right Groin via Subcutaneous. Ordered by Karl Ambrocio. Medication (Drip) Medication Time Given Dosage/Unit Concentration/Unit Diluent (ml) Solution IV Solutions 03/13/2018 1:00:08 PM 0 mL (IV) 500 NaCl .9 IV Solutions given in lab by Palomo Ventura RN in Left Antecubital via Peripheral IV. Pump/Drip Flow = 200 ml/hr using NaCl .9. Initial Case Assessment Cardiovascular HR Rhythm NIBP Chest Pain 47 SB 137/82 0 Edema Present Skin color Skin None Normal Warm Dry Circulatory - Right Pulses Dorsalis Pedis Femoral 2 2 Scale (0,1,2,3,4,d) Circulatory - Left Pulses Dorsalis Pedis Femoral 2 2 Scale (0,1,2,3,4,d) Neurological State Oriented to time-place- Alert Moves all extremities person Respiration - General Respiration Rate SpO2 (%) O2 (lpm) (B/min) 24 99 0 Initial Case Assessment Cardiovascular HR Rhythm NIBP Chest Pain 59 SB 139/82 0 Edema Present Skin color Skin None Normal Warm Dry Circulatory - Right Pulses Dorsalis Pedis Femoral 2 2 Scale (0,1,2,3,4,d) Circulatory - Left Pulses Dorsalis Pedis Femoral 2 2 Scale (0,1,2,3,4,d) Circulatory - Lower Extremities Color Lower Right Color Lower Left Normal Normal Neurological State Oriented to time-place- Alert Moves all extremities person Respiration - General Respiration Rate SpO2 (%) O2 (lpm) (B/min) 21 99 0 Chronological Log Time Study Chronological Log 12:56:47 Patient arrived via Bed. 12:59:53 Patient Name, D.O.B, / Armband Verified By R.N. 12:59:53 Consent signed by the physician and the patient and verified by the [facility] staff. 12:59:54 Pre-op and post- op instructions given; patient acknowledges understanding of instructions. 12:59:55 Verbal Stimulation=2 Physical Stimulation=2 Airway=2 Respiration=2 TOTAL=8. (0=absent, 1=li mited, 2=present) 12:59:56 Presedation assessment performed by [place] [facility] RN. 13:00:00 Patient has been NPO for More than 6Hrs. 13:00:00 Skin Breakdown-none per patient. 13:00:02 Patient Warmer Placed on the Table. 13:00:04 Jeremías Prominences Protected 13:00:06 A # 20 IV was noted in the Antecubital (left). Grade = 0 IV Solutions given in lab by Palomo Ventura RN in Left Antecubital via Peripheral IV. Pump/Drip F low = 200 ml/hr using 13:00:08 NaCl .9. 13:00:08 History and physical on the chart or being dictated. Vitals capture started with the following parameters, Patient=Adult, Interval=5 min, Initial Pr fxjnmd=585 mmHg, 13:05:04 Deflation Rate=5 mmHg, Cuff placed on Left Arm 13:06:23 HR=51 bpm, LNBV=855/82 mmhg, SpO2=99.0 %, Resp=18 B/min, Pain=0, Lizeth=10, Kerr=2 Assessment: Initial Case, HR=47 BPM, Rhythm=SB, TMSE=424/82 mmhg, Chest Pain=0, Edema=None, Col or=Normal, Skin = Warm, Dry Right Pulses: [place] Ped=2, Femoral=2 13:06:34 Left Pulses: [place] Ped=2, Femoral=2 Neurological: State=Alert, Ox3, GLASS Respiration: Resp=24 B/min, SpO2=99 %, O2=0 lpm 13:07:13 Bilateral groins prepped with 2% chlorhexidine, and draped after a 3 minute waiting time. 13:07:20 Reference ECG taken 13:11:13 HR=53 bpm, WWMQ=329/78 mmhg, SpO2=98.0 %, Resp=16 B/min, Pain=0, Lizeth=10, Kerr=2 13:12:58 Pressure channel 1 zeroed. 13:15:10 paged 13:15:42 HR=50 bpm, PTDA=393/76 mmhg, SpO2=98.0 %, Resp=18 B/min, Pain=0, Lizeth=10, Kerr=2 13:20:43 HR=54 bpm, FWIO=677/80 mmhg, SpO2=98.0 %, Resp=21 B/min, Pain=0, Lizeth=10, Kerr=2 13:24:06 2 mg VERSED given in lab by Palomo Ventura RN via Peripheral IV. Ordered by Karl Gomez. 13:24:26 arrived. 13:25:14 50 mcg FENTANYL given in lab by Palomo Ventura RN via Peripheral IV. Ordered by Larry Gomez. 13:25:46 KH=015 bpm, BCBP=892/79 mmhg, SpO2=98.0 %, Resp=24 B/min, Pain=0, Lizeth=10, Kerr=2 13:30:47 HR=57 bpm, AIKA=578/74 mmhg, SpO2=98 %, Resp=22 B/min, Pain=0, Lizeth=9, Kerr=2 20 mL 1% XYLOCAINE given in lab by Stevo Luna RCIS(ALLISON) in Right Groin via Subcutaneous. Ordere d by Jason, 13:30:50 Karl. Time Out. Correct patient, correct procedure, correct physician, power injector loaded, with co ntrast with surgical team 13:32:23 present. Time Out Concurred by MD and individual staff in procedure. 13:32:35 Case Start 13:35:01 Access site was Right Femoral Artery. 13:35:07 A SHEATH, FR5 TERUMO (10CM) FR 5 was advanced into the Fem Art (right) using the Percutaneo us technique. 13:35:42 HR=53 bpm, JDIC=100/77 mmhg, SpO2=98.0 %, Resp=13 B/min A PIGTAIL ANG. INFINITI CATHETER FR 5 was advanced over a wire. OMNIPAQUE, 350 MG, 150ML 150ML was used 13:35:46 for injections. Recorded Pressure: LV, HR=56, Condition=Condition 1 13:36:44 (Left Ventricle) LV 123/7/13 13:37:59 The LV was injected at 10 cc/sec for a total of 30. OMNIPAQUE, 350 MG, 50ML 50ML used. Recorded Pressure: LV, Ao, HR=59, Condition=Condition 1 13:38:43 (Left Ventricle) LV 117/12/17, (Aorta) Ao 122/63/90 After removing the current catheter a JL 4.0 INFINITI CATHETER FR 5 was advanced over a WIRE, 3 MMJ .035 180CM 13:38:58 180CM. 13:40:06 The LCA was injected and visualized at various angles. OMNIPAQUE, 350 MG, 150ML 150ML used . 13:41:26 HR=59 bpm, FAIT=126/80 mmhg, SpO2=99.0 %, Resp=10 B/min Recorded Pressure: Ao, HR=58, Condition=Condition 1 13:41:52 (Aorta) Ao 129/68/94 After removing the current catheter a AR MOD INFINITI CATHETER FR 5 was advanced over a WIRE, 3 MMJ .035 180CM 13:42:04 180CM. 13:43:18 The RCA was injected and visualized at various angles. OMNIPAQUE, 350 MG, 150ML 150ML used . 13:44:05 Catheter was removed 13:44:17 Case End 13:45:48 HR=65 bpm, LOIX=652/82 mmhg, SpO2=99.0 %, Resp=15 B/min 13:48:20 Sheath removed; pressure applied to access site. 13:50:47 HR=59 bpm, MLAI=050/86 mmhg, SpO2=98.0 %, Resp=10 B/min, Pain=0, Lizeth=10, Kerr=2 13:55:46 HR=59 bpm, WXUH=123/82 mmhg, SpO2=97.0 %, Resp=10 B/min, Pain=0, Lizeth=10, Kerr=2 13:57:40 Sterile dressing applied to site 13:58:54 Vitals capture stopped. Assessment: Initial Case, HR=59 BPM, Rhythm=SB, GPNR=579/82 mmhg, Chest Pain=0, Edema=None, Co guzman=Normal, Skin = Warm, Dry Right Pulses: [place] Ped=2, Femoral=2 Left Pulses: [place] Ped=2, Femoral=2 13:59:08 Lower Right Extremities: Color=Normal Lower Left Extremities: Color=Normal Neurological: State=Alert, Ox3, GLASS Respiration: Resp=21 B/min, SpO2=99 %, O2=0 lpm 14:00:09 No case complications noted. 14:00:10 Cine recording checked. 14:00:12 Bedside Report will be given. 14:00:23 A Left Heart Cath was performed. 14:02:15 Patient moved to [facility] End Study - Contrast Media Used In Study Contrast Total Opened (mL) Total Used (mL) Total Wasted (mL) Omnipaque 80 80 0 End Study - Maximum Contrast Load Max Contrast Load (mL) 527.8 End Study - Radiation Exposure Fluoro Time (minutes) 1.3 End Study - Sheaths Sheaths Pulled By Sheath Hold Time (min) Stevo Luna 15 End Study - Patient Disposition Complications Transferred To Telemetry Bed
--- NOTE | 2018-03-13 14:39 | MA ---
cc: Karl Gomez MD DATE: 03/13/2018 INDICATIONS: Unstable angina, syncope, class III angina. PROCEDURE PERFORMED: 1. Retrograde left heart catheterization with left ventriculography and selective coronary angiography. 2. Moderate sedation. ACCESS SITE: Right femoral artery. EQUIPMENT USED: 5-Nepali pigtail catheter, 5-Nepali JL4 and AR modified coronary artery catheters. MEDICATIONS: Versed IV, fentanyl IV, normal saline IV. CONTRAST: Omnipaque 80 mL COMPLICATIONS: None. ESTIMATED BLOOD LOSS: Less than 10 mL METHOD OF HEMOSTASIS: Manual compression. RESULTS: A. HEMODYNAMICS: Heart rate 55 beats per minute. Left ventricular end-diastolic pressure 12 mm. Left ventricle 120/12, aorta 120/68;94. B. LEFT VENTRICULOGRAPHY: Ejection fraction is 30%. Wall Motion: Moderate to severe global hypokinesis. No mitral regurgitation. C. CORONARY ANGIOGRAPHY: The left main coronary artery is patent. The left anterior descending artery is patent. D1 patent, D2 patent. The left circumflex artery is patent. OM1 patent. OM2 patent. Left PDA patent. The right coronary artery is a dominant vessel, which is patent. Nondominant is patent. DIAGNOSES: 1. Widely patent coronary arteries. 2. Moderate to severe left ventricular systolic dysfunction consistent with nonischemic cardiomyopathy. DISPOSITION: Mr. Pop was found to have evidence of patent coronary arteries and moderate to severe left ventricular systolic dysfunction. His study is consistent with nonischemic cardiomyopathy. We will continue and titrate therapy for congestive heart failure. He will be scheduled for electrophysiology study and radiofrequency ablation of his supraventricular tachycardia if necessary tomorrow. MD ALDEN Fisher/TEJ , 01:59 PM , 02:39 PM
[2018-03-13 15:02] LABS: CHOLESTEROL/ HDL RATIO 3.43 RATIO; HDL CHOLESTEROL 38.1 MG/DL (40.0-60.0)
[2018-03-13] MEDS ORDERED: IOHEXOL 350 MG/ML 100 ML BTL (for Cath Lab) OTHER ONE (15:27)
[2018-03-13] MEDS ORDERED: METOPROLOL TARTRATE 25 MG TAB PO ONE (17:00)
[2018-03-13] MEDS ORDERED: LORazepam 1 MG TAB PO PRN (21:15)
[2018-03-13] MEDS ORDERED: LORazepam 2 MG/ML VIAL IV PUSH PRN ×4 (21:15)
[2018-03-13] MEDS ORDERED: LORazepam 2 MG TAB PO PRN (21:15)
[2018-03-14] VITALS (21 sets, daily range): BP systolic 91–119; BP diastolic 66–77; PULSE 46–85; RESP 16–20; TEMP 97.4–98; O2SAT 94–100
[2018-03-14] MEDS ORDERED: INSULIN HUMAN REGULAR 1,000 UNITS/10 ML VIAL SQ PRN (03:00)
[2018-03-14] MEDS ORDERED: LACTATED RINGER'S 1000 ML IV PRN (03:00)
[2018-03-14] MEDS ORDERED: SODIUM CHLORID 0.9% 500 ML IV PRN (03:00)
[2018-03-14] MEDS ORDERED: METOPROLOL TARTRATE 25 MG TAB PO PRN (03:00)
[2018-03-14] MEDS ORDERED: POVIDONE IODINE 5% (ANTISEPSIS KIT) 4 APPLICATIONS EACH NARE PRN (03:00)
[2018-03-14] MEDS ORDERED: CHLORHEXIDINE GLUCONATE 2 % 1 PACK (2 CLOTHS) TOPICAL PRN (03:00)
[2018-03-14 07:52] LABS: BICARBONATE 26.3 MEQ/L (21.0-32.0); CALCIUM 8.5 MG/DL (8.5-10.1); CREATININE 0.9 MG/DL (0.60-1.30)
[2018-03-14] MEDS: DOCUSATE SODIUM 50 MG/SENNA 8.6 MG TAB PO SCH ×2 (09:00→21:00)
[2018-03-14] MEDS: SODIUM CHLORIDE 0.9% FLUSH 10 ML FLUSH IV FLUSH SCH ×2 (09:00→21:16)
[2018-03-14] MEDS: PRAVASTATIN SOD 80 MG TAB PO SCH (09:43)
[2018-03-14] MEDS: LISINOPRIL 10 MG TAB PO SCH (09:43)
[2018-03-14] MEDS: ASPIRIN 81 MG CHEW TAB CHEW SCH (09:43)
[2018-03-14] MEDS ORDERED: PROPOFOL 200 MG/20 ML AMP IV ONE (12:00)
[2018-03-14] MEDS ORDERED: LIDOCAINE HCL 1% PF 5 ML SYRINGE OTHER ONE (12:00)
[2018-03-14] MEDS ORDERED: PHENYLEPH/NS 1000 MCG/10 ML SYR IV ONE (12:00)
--- NOTE | 2018-03-14 12:26 | HHI.PR ---
Subjective Remarks Patient says he is feeling well. Denies any chest pain or shortness of breath. Denies nausea or vomiting. Denies constipation. Plan for EP study this afternoon. Objective Vital Signs Date Time Temp Pulse Resp B/P (MAP) Pulse Ox O2 Delivery O2 Flow Rate FiO2 03/14/18 11:00 77 03/14/18 10:00 66 03/14/18 09:00 67 03/14/18 07:00 97.4 54 16 107/71 (83) 97 03/14/18 07:00 Room Air 03/14/18 07:00 53 03/14/18 06:00 52 03/14/18 05:00 46 03/14/18 04:00 50 03/14/18 04:00 98.0 54 18 119/69 (86) 94 03/14/18 03:00 50 03/14/18 02:00 58 03/14/18 01:00 76 03/14/18 00:00 62 03/14/18 00:00 96 Room Air 03/14/18 00:00 97.7 57 20 113/68 (83) 97 03/13/18 23:00 58 03/13/18 22:00 58 03/13/18 21:00 56 03/13/18 20:00 58 18 109/67 (81) 96 03/13/18 20:00 96 Room Air 03/13/18 20:00 61 03/13/18 19:00 68 03/13/18 18:00 70 03/13/18 17:00 68 03/13/18 16:00 66 03/13/18 15:00 55 03/13/18 15:00 97.2 52 16 116/84 (95) 97 03/13/18 14:00 55 I/O 03/13/18 03/13/18 03/13/18 03/14/18 03/14/18 03/14/18 06:59 14:59 22:59 06:59 14:59 22:59 Intake Total 960 ml 480 ml 480 ml Output Total 1200 ml 500 ml Balance -240 ml -20 ml 480 ml Intake Oral 960 ml 480 ml 480 ml Output Urine Total 1200 ml 500 ml # Voids 3 3 # Bowel Movements 1 0 Result Diagram: 03/10/18 0236 03/14/18 0550 Objective Remarks GENERAL: he is sitting up in chair at bedside. Appears comfortable. Alert and oriented 3. Again, no changes on exam SKIN: Warm and dry. HEAD: Normocephalic. EYES: No scleral icterus. No injection or drainage. NECK: Supple, trachea midline. No JVD. CARDIOVASCULAR: Regular rate and rhythm without murmurs, gallops, or rubs. RESPIRATORY: Breath sounds equal bilaterally. No accessory muscle use. GASTROINTESTINAL: Abdomen soft, non-tender, nondistended. MUSCULOSKELETAL: No cyanosis, or edema. BACK: Nontender without obvious deformity. No CVA tenderness. A/P Assessment and Plan //Syncope: reports syncope x7 today, recent admit for similar complaints w/ negative work up. CT Head w/ no acute findings, images reviewed by me. Admit to [facility], Telemetry, check serial cardiac enzymes to eval for underlying ischemia. IVF for hydration. = No further episodes. Continue on telemetry. Troponin mildly elevated. Follow-up cardiology recommendations. = 03/13. Planned catheterization this afternoon. Appreciate cardiology assistance. = 03/14. Planned EP study this afternoon. // SVT: h/o SVT, recent admit 03/06 for same, s/p eval by Dr. Gomez, switched from Diltiazem to Metoprolol, s/p SVT x2 while in ER w/ good response after vagal maneuvers and Metoprolol PO. Will consult Dr. Gomez for further evaluation, likely ablation. Continue Metoprolol. Check serial cardiac enzymes. IVF for hydration. = Troponin slightly elevated. Follow-up cardiology recommendations. = Echocardiogram 55% ejection fraction. Mild aortic regurgitation. Cardiology following. = Plan for catheterization on Tuesday, possible ablation following. Appreciate cardiology assistance = 03/14. EP study suctioning. // Dehydration: BUN 19, GFR 68, IVF for hydration, repeat labs in am. = Resolved. Discontinue IV fluids. Encourage p.o. intake. //Alcohol Use: Drinks 3-4 beers daily w/ wine, CIWA, Seizure Precautions, MVT/ Thiamine/Folate replacement. = Continue on Cipro. Does not appear to be withdrawing. = No signs of withdrawal currently. Discontinue CIWA protocol. //DVT Prophylaxis: Patient ambulating. Otherwise and coagulation as per cardiology. Discharge Planning Cardiology planning for further workup, catheterization, possible ablation. Hopefully home possibly Tuesday Clinton Canchola MD March 14, 2018 12:25
[2018-03-14] MEDS ORDERED: PROTAMINE SULFATE 50 MG/5 ML VIAL ONE (17:25)
[2018-03-14] MEDS ORDERED: HEPARIN SODIUM - IV 10,000 UNITS/10 ML VIAL ONE (17:25)
[2018-03-14] MEDS ORDERED: ISOPROTERENOL INJ PREMIX 50 ML IV ONE (17:25)
[2018-03-14] MEDS ORDERED: MIDAZOLAM HCL 2 MG/2 ML VIAL ONE (19:16)
[2018-03-14] MEDS ORDERED: PROPOFOL 200 MG/20 ML AMP ONE (19:20)
--- NOTE | 2018-03-14 19:45 | CATHPROC ---
Patient Name: EVELIN PURDY Study #: [id number] Initial MD: Karl Gomez Date of : 1950 Study Date: 03/14/2018 Cardiac Catheterization Report 03/14/2018 7:45:27 PM Financial #: [id number] 1 of 7 Patient Name: EVELIN PURDY Study #: [id number] Initial MD: Karl Gomez Date of : 1950 Study Date: 03/14/2018 Entire Case Report Patient Information Patient Name EVELIN PURDY Date of 1950 Age 67 years Financial # [id number] Gender M AlternateID Lab Number 2 Accession # Room Number Height (in) 70.0 Height (cm) 177.8 BSA 2.13 Weight (lbs) 209.4 Weight (kg) 95.2 Patient Address/Phone Number Home Address [facility] Home Phone Number [address] [facility] [id number] Study Information Study Number Scheduled Start Study Start [id number] 03/14/2018 Mar 14 2018 4:39PM Referring Institution Admit Source Facility Department 1 Other [facility] - Commissary Manager Physician and Clinical Staff Initial Karl Galindo Hydrator Operator Tramaine Crews,RT(R) Other Anesthesia, OPERATIONS STAFF SPECIALIST SECURITY Recorder Linda Keyes,RN Recorder Belle Ortega,KB Scrub Sera Shoemaker,RT(R) TECH2 03/14/2018 7:45:27 PM Financial #: [id number] 2 of 7 Patient Name: EVELIN PURDY Study #: [id number] Initial MD: Karl Gomez Date of : 1950 Study Date: 03/14/2018 Equipment Time Zinc Plater Description Size Mfg Part Number Used/Scraped BIOSENSE SUN CATHETER, DEFLECTABLE, 1MM, [id number] 17:19 FR 6 Used INC. D TYPE HEX *[id number] BIOSENSE SUN CATHETER, DEFLECTABLE, 1MM, [id number] 17:19 FR 7 Used INC. D TYPE OCTA *[id number] [employer]/ EP CATHETER, FR7 BLAZER II LARGE [id number] 17:20 FR7 Used PACER CURVE *[id number] 17:17 CONMED LEADWIRE, DEFIBRILLATION PAD 2001M-PC Used [id number] 17:17 MEDLINE INDUSTRIES PACK, CCL CUSTOM * Used *[id number] 17:17 MEDLINE PACER LOMBARDI, LIMB * 2530 *[id number] Used [id number] 17:22 [employer] SHEATH, FR4.5 PRELUDE 11CM FR 4.5 Used [id number] 18:01 NAMIC TUBING, HIGH PRESSURE 48" 48" Used *[id number] 17:17 [employer] BLANKET,WARM AIR CCL * Used *[id number] CATHETER, DECAPOLAR CSL 575558 17:18 [employer] FR 6 Used RESPONSE *[id number] 17:18 [employer] CATHETER, JSN, QUAD FR 5 Used *[id number] 17:17 [employer] ELECTRODE KIT, KATEY X SURFACE * [id number] Used 17:21 [employer] SHEATH, EPS, FR7 FAST CATH FR 7 [id number] Used 17:21 [employer] SHEATH, EPS, FR7 FAST CATH FR [address] [id number] Used 17:21 [employer] SHEATH, EPS, FR7 FAST CATH FR 7 [id number] Used 068844 17:21 [employer] SHEATH, EPS, FR8 FAST CATH FR 8 Used *[id number] [facility] PAD, ELECTROSURGICAL 17:17 * [id number] *[id number] Used SURGICAL GROUNDING (BLUE) Insurance Information Insurance Payor Medicare Third Libertarian Third Libertarian Number MEDICARE A B MCRAB History: Risk Factors Hypertension Dyslipidemia Yes Yes Medication 03/14/2018 7:45:27 PM Financial #: [id number] 3 of 7 Patient Name: EVELIN PURDY Study #: [id number] Initial MD: Karl Gomez Date of : 1950 Study Date: 8 Medication Total Dose (Bolus/Oral) Medication Total Dosage/Unit 1% XYLOCAINE 40 mL Medications (Bolus/Oral) Medication Time Given Dosage/Unit Administered By Reason 1% XYLOCAINE 03/14/2018 5:52:03 PM 20 mL Karl Gomez 20 mL 1% XYLOCAINE given in lab by Karl Gomez via Subcutaneous. right neck 1% XYLOCAINE 03/14/2018 5:56:40 PM 20 mL Karl Gomez 20 mL 1% XYLOCAINE given in lab by Karl Gomez in Right Groin via Subcutaneous. Medication (Drip) Medication Time Given Dosage/Unit Concentration/Unit Diluent (ml) Solution ISUPREL 03/14/2018 6:56:31 PM 2 mcg/min 1 mg 250 NaCl .9 2 mcg/min ISUPREL given in lab by Anesthesia, OPERATIONS STAFF SPECIALIST SECURITY via Peripheral IV. Pump/Drip Flow = 30 ml/hr using NaCl .9 with a concentration of 1 mg in 250 ml. Ordered by Karl Gomez. Reason: As per physicians verbal order. Initial Case Assessment Cardiovascular HR Rhythm NIBP Chest Pain 60 sr 119/71 0 Edema Present Skin color Skin None Normal Warm Dry Circulatory - Right Pulses Dorsalis Pedis 1 Scale (0,1,2,3,4,d) Circulatory - Left Pulses Dorsalis Pedis 1 Scale (0,1,2,3,4,d) Circulatory - Lower Extremities Color Lower Right Color Lower Left Normal Normal Neurological State Oriented to time-place- Alert Moves all extremities person Respiration - General Respiration Rate SpO2 (%) (B/min) 18 94 03/14/2018 7:45:27 PM Financial #: [id number] 4 of 7 Patient Name: EVELIN PURDY Study #: [id number] Initial MD: Karl Gomez Date of : 1950 Study Date: 03/14/2018 Final Case Assessment Cardiovascular HR Rhythm NIBP Chest Pain 74 sr 97/60 0 Edema Present Skin color Skin None Normal Warm Dry Circulatory - Right Pulses Dorsalis Pedis 1 Scale (0,1,2,3,4,d) Circulatory - Left Pulses Dorsalis Pedis 1 Scale (0,1,2,3,4,d) Circulatory - Lower Extremities Color Lower Right Color Lower Left Normal Normal Neurological State Drowsy Moves all extremities Respiration - General Respiration Rate SpO2 (%) O2 (lpm) (B/min) 16 97 15 Chronological Log Time Study Chronological Log 17:05:48 Patient arrived via Bed. 17:05:49 Patient Name, D.O.B, / Armband Verified By R.N. 17:05:50 Consent signed by the physician and the patient and verified by the Commissary Manager staff. 17:05:50 Pre-op and post- op instructions given; patient acknowledges understanding of instructions. 17:05:51 Verbal Stimulation=2 Physical Stimulation=2 Airway=2 Respiration=2 TOTAL=8. (0=absent, 1=li mited, 2=present) 17:05:52 Anesthesia at bedside. Assumes care of patient. 17:05:53 Patient has been NPO for More than 6Hrs. 17:05:54 Skin Breakdown- right groin w bruise 17:05:55 Patient Warmer Placed on the Table. 03/14/2018 7:45:27 PM Financial #: [id number] Patient Name: EVELIN PURDY Study #: [id number] Initial MD: Karl Gomez Date of : 1950 Study Date: 03/14/2018 17:05:56 Disposable Defibrillator Pads Placed On Patient. 17:05:56 Jeremías Prominences Protected 17:05:58 A # 18 IV was noted in the Forearm (right). Grade = 0 0.9ns kvo 17:05:59 A # 20 IV was noted in the Antecubital (left). Grade = 0 0.9ns kvo 17:06:00 History and physical on the chart or being dictated. Assessment: Initial Case, HR=60 BPM, Rhythm=sr, DZPM=791/71 mmhg, Chest Pain=0, Edema=None, Col or=Normal, Skin = Warm, Dry Right Pulses: Milan Ped=1 Left Pulses: Milan Ped=1 17:25:53 Lower Right Extremities: Color=Normal Lower Left Extremities: Color=Normal Neurological: State=Alert, Ox3, GLASS Respiration: Resp=18 B/min, SpO2=94 % 17:30:22 Table restraints applied according to hospital policy 17:37:19 Bilateral groins prepped with 2% chlorhexidine, and draped after a 3 minute waiting time. 17:45:15 MD arrived. Time Out. Correct patient, procedure, procedure equipment, site and side verified with physicia n present. Time 17:50:51 concurred by MD, individual staff and OPERATIONS STAFF SPECIALIST SECURITY. Time Out #2 - Consents verified, patient in correct position, all results are labled and displa yed, safety precautions 17:50:55 taken, antibiotics administered. Time out concurred by MD, individual staff and OPERATIONS STAFF SPECIALIST SECURITY in procedu re 17:51:00 Case Start 17:52:03 20 mL 1% XYLOCAINE given in lab by Karl Gomez via Subcutaneous. right neck 17:53:40 Vascular access was obtained in the Jugular Vein (right). A SHEATH, EPS, FR7 FAST CATH FR 7 was advanced into the Jugular Vein (right) using the Modified Seldinger 17:54:05 technique. A CATHETER, DECAPOLAR CSL RESPONSE FR 6 was advanced vis Jugular Vein (right) and placed in the CS. Placement 17:55:46 was visually confirmed under fluoroscopy. 17:56:40 20 mL 1% XYLOCAINE given in lab by Karl Gomez in Right Groin via Subcutaneous. 18:00:21 Vascular access was obtained in the Fem Vein (right). 18:00:24 A SHEATH, EPS, FR7 FAST CATH FR 7 was advanced into the Fem Art (right) using the Modified Seldinger technique. 18:02:06 Vascular access was obtained in the Fem Art (right). 18:02:18 A SHEATH, FR4.5 PRELUDE 11CM FR 4.5 was advanced into the Fem Art (right) using the Modifie d Seldinger technique. 18:05:17 Vascular access was obtained in the Fem Vein (right). 18:05:21 A SHEATH, EPS, FR7 FAST CATH FR 7 was advanced into the Fem Vein (right) using the Modified Seldinger technique. 18:06:13 Vascular access was obtained in the Fem Vein (left). 18:06:33 A SHEATH, EPS, FR8 FAST CATH FR 8 was advanced into the Fem Vein (right) using the Modified Seldinger technique. A CATHETER, DEFLECTABLE, 1MM, D TYPE HEX FR 6 was advanced vis Fem Vein (right) and placed in t he HRA. 18:07:06 Placement was visually confirmed under fluoroscopy. A CATHETER, JSN, QUAD FR 5 was advanced vis Fem Vein (right) and placed in the RVA. Placement w as visually 18:07:32 confirmed under fluoroscopy. A CATHETER, DEFLECTABLE, 1MM, D TYPE OCTA FR 7 was advanced vis Fem Vein (right) and placed in the HIS. 18:08:03 Placement was visually confirmed under fluoroscopy. A CATHETER, FR7 BLAZER II LARGE CURVE FR7 was advanced vis Fem Vein (right) and placed in the I sthmus. 18:14:47 Placement was visually confirmed under fluoroscopy. 18:15:00 ep study in progress 03/14/2018 7:45:27 PM Financial #: [id number] 6 of 7 Patient Name: EVELIN PURDY Study #: [id number] Initial MD: Karl Gomez Date of : 1950 Study Date: 03/14/2018 2 mcg/min ISUPREL given in lab by Anesthesia, OPERATIONS STAFF SPECIALIST SECURITY via Peripheral IV. Pump/Drip Flow = 30 ml/h r using NaCl .9 with 18:56:31 a concentration of 1 mg in 250 ml. Ordered by Karl Gomez. Reason: As per physicians duc parra order. 19:16:11 Isuprel off. 19:21:34 All catheter(s) removed without difficulty 19:25:36 R jugular sheath removed; pressure applied to access site by DB. 19:28:41 Arterial sheath removed; pressure applied to access site by HH. 19:38:17 Sterile dressing applied to Jugular site. Site wnl 19:39:19 PACU called. Spoke to Clinton 19:39:30 Bedside Report will be given. 19:41:38 EP Procedure was performed. EPS only 19:42:07 Venous sheaths removed; pressure applied to access sites by HH. Assessment: Final Case, HR=74 BPM, Rhythm=sr, NIBP=97/60 mmhg, Chest Pain=0, Edema=None, Color =Normal, Skin = Warm, Dry Right Pulses: Milan Ped=1 Left Pulses: Milan Ped=1 19:42:21 Lower Right Extremities: Color=Normal Lower Left Extremities: Color=Normal Neurological: State=Drowsy, GLASS Respiration: Resp=16 B/min, SpO2=97 %, O2=15 lpm 19:43:15 Case End 19:50:47 Sterile dressing applied to right groin site. Site wnl 19:59:58 Patient moved to stretcher End Study - Contrast Media Used In Study Contrast Total Opened (mL) Total Used (mL) Total Wasted (mL) Unspecified 0 0 0 End Study - Radiation Exposure Fluoro Time (minutes) 5.4 End Study - Patient Disposition Complications Transferred To Interventional Outcome No Telemetry Bed successful 03/14/2018 7:45:27 PM Financial #: [id number]
--- NOTE | 2018-03-14 20:13 | MA ---
cc: Karl Gomez MD DATE: 03/14/2018 INDICATIONS: Supraventricular tachycardia, cardiomyopathy with moderate to severe left ventricular systolic dysfunction, syncope. PROCEDURE PERFORMED: 1. Comprehensive electrophysiology study with right atrial and right ventricular pacing and sensing. 2. Coronary sinus cannulation with coronary sinus pacing and sensing. 3. 3-D mapping. ACCESS SITE: Right internal jugular vein, right femoral vein, right femoral artery. EQUIPMENT USED: Decapolar catheter in coronary sinus, quadripolar catheter in the right ventricular apex, octapolar catheter the His bundle region and hexapolar catheter in the high right atrium. MEDICATIONS: Isuprel IV, sedation was administered by Anesthesia. COMPLICATIONS: None. ESTIMATED BLOOD LOSS: Less than 10 mL METHOD OF HEMOSTASIS: Vascade closure and manual compression. RESULTS: I. BASELINE EK. Sinus rhythm, normal axis, normal intervals. 2. Baseline Intervals (milliseconds) cycling 1088, RI 160, QRS 100, QT 380 QTc 363, AH 66, HV 66. III. RIGHT ATRIUM PROGRAM STIMULATION: 1. Right atrial program stimulation was performed at baseline and on isoproterenol. 2. AV Wenckebach baseline 360 milliseconds, on isoproterenol 320 milliseconds. 3. RA RP on isoproterenol 500/200/230. 400/180/210. IV. CORONARY SINUS STIMULATION: Coronary sinus stimulation was performed at baseline. No arrhythmias were induced. V. RIGHT VENTRICULAR PROGRAM STIMULATION: Right ventricular program stimulation was performed at baseline and on isoproterenol up to 2 mcg per minute. A. BASELINE: RVRP 500/220/250. 400/200/230. Closest coupling intervals: 500/250/160. 400/230/140. 500/250/190/180. 400/180/140/180. B. On isoproterenol:. RVRP 400/180/210. Closest coupling intervals: 400/210/130. 400/210/160/180. ARRHYTHMIAS INDUCED: Atrial tachycardia, cycling 380 milliseconds. PVCs and tachycardia. No evidence of accessory pathway. Right atrium was mapped and the rhythm was consistent with left atrial tachycardia, but likely coming from the right superior or right inferior pulmonary vein. Ventricular pacing showed concentric VA conduction and no evidence of retrograde accessory pathway conduction. Ventricular programmed electrical stimulation resulted in no inducible ventricular tachycardia. DIAGNOSES: 1. Left atrial tachycardia easily inducible, baseline. 2. No inducible ventricular arrhythmias. 3. HV interval 66 milliseconds. DISPOSITION: Mr. Kiesha was found to have no evidence of inducible ventricular tachycardia. Left atrial tachycardia was easily inducible at baseline. He will be started on amiodarone for the management of his atrial tachycardia since he failed diltiazem and metoprolol. We will continue and titrate therapy for his nonischemic cardiomyopathy. We will place a LifeVest for 3 months and recheck his echocardiogram in 3 months. If his left ventricular function does not improve, implantable defibrillator will be placed. MD ALDEN Fisher/TEJ , 07:32 PM , 08:13 PM
[2018-03-14] MEDS: AMIODARONE 200 MG TAB PO SCH (21:16)
[2018-03-14] MEDS ORDERED: DO NOT ADM ANY ANTICOAGULANT DRUGS PRN (21:45)
[2018-03-15] VITALS (26 sets, daily range): BP systolic 93–144; BP diastolic 55–78; PULSE 51–95; RESP 16–18; TEMP 97.4–98; O2SAT 93–100
[2018-03-15] MEDS: SODIUM CHLORIDE 0.9% FLUSH 10 ML FLUSH IV FLUSH SCH ×2 (09:00→22:09)
[2018-03-15] MEDS: DOCUSATE SODIUM 50 MG/SENNA 8.6 MG TAB PO SCH ×3 (09:00→10:25)
[2018-03-15] MEDS: PRAVASTATIN SOD 80 MG TAB PO SCH (10:23)
[2018-03-15] MEDS: AMIODARONE 200 MG TAB PO SCH ×2 (10:23→22:08)
[2018-03-15] MEDS: ASPIRIN 81 MG CHEW TAB CHEW SCH (10:24)
[2018-03-15] MEDS: LISINOPRIL 10 MG TAB PO SCH (10:24)
--- NOTE | 2018-03-15 18:24 | HHI.PR ---
Subjective Remarks Resting comfortably in bed No event overnight Denied chest and or short of breath No fever or chills Objective Vitals Vital Signs Date Time Temp Pulse Resp B/P (MAP) Pulse Ox O2 Delivery O2 Flow Rate FiO2 03/15/18 18:00 64 03/15/18 17:00 56 03/15/18 16:00 83 03/15/18 15:00 97.8 84 16 93/55 (68) 93 03/15/18 15:00 91 03/15/18 14:00 77 03/15/18 13:00 66 03/15/18 12:00 63 03/15/18 11:00 68 03/15/18 11:00 97.7 63 16 132/75 (94) 95 03/15/18 10:00 74 03/15/18 09:00 72 03/15/18 08:00 62 03/15/18 07:00 97.4 61 16 144/78 (100) 95 03/15/18 07:00 56 03/15/18 07:00 95 Room Air 03/15/18 06:00 51 03/15/18 05:00 51 03/15/18 04:00 52 03/15/18 03:00 52 03/15/18 03:00 97.5 61 16 104/60 (75) 100 03/15/18 02:00 61 03/15/18 01:00 61 03/15/18 00:00 68 03/14/18 23:30 97.6 65 16 114/77 (89) 100 03/14/18 23:00 65 03/14/18 22:00 75 03/14/18 21:00 74 03/14/18 20:45 97.4 79 16 91/70 (77) 96 03/14/18 20:32 97.4 78 14 142/77 (98) 100 Nasal Cannula 2 03/14/18 20:30 162 14 68/28 (41) 99 Nasal Cannula 2 03/14/18 20:15 73 16 106/60 (75) 100 Nasal Cannula 2 03/14/18 20:10 82 15 110/78 (89) 99 Nasal Cannula 2 03/14/18 20:07 97.0 89 16 86/51 (63) 98 Nasal Cannula 2 03/14/18 20:00 96 Nasal Cannula 2.00 I/O 03/14/18 03/14/18 03/14/18 03/15/18 03/15/18 03/15/18 07:00 15:00 23:00 07:00 15:00 23:00 Intake Total 480 ml 1840 ml 480 ml 620 ml Output Total 425 ml 1175 ml 300 ml Balance 480 ml 1415 ml -695 ml 320 ml Intake Oral 480 ml 340 ml 480 ml 620 ml Other 1500 ml Output Urine Total 400 ml 1175 ml 300 ml Estimated Blood Loss 25 ml # Voids 3 6 3 # Bowel Movements 0 0 Result Diagram: 03/14/18 0550 Objective Remarks GENERAL: This is a well-nourished, well-developed patient, in no apparent distress. CARDIOVASCULAR: RRR, no gallops, or rubs. RESPIRATORY: Fair air entry bilaterally. No W, R, or R GASTROINTESTINAL: Abdomen soft, non-tender, nondistended. Positive bowel sounds MUSCULOSKELETAL: Extremities without clubbing, cyanosis, or edema. Pedal pulses appreciated NEUROLOGICAL: Awake and alert. Moves all extremity. Normal speech.no focal neurological deficit A/P Problem List: (1) Syncope ICD Code: R55 - Syncope and collapse Status: Acute (2) SVT (supraventricular tachycardia) ICD Code: I47.1 - Supraventricular tachycardia (3) Dehydration ICD Code: E86.0 - Dehydration (4) Alcohol use ICD Code: Z78.9 - Other specified health status Assessment and Plan 03/15: Awaiting LifeVest, continue current care, cardiology following A/P //Syncope: reports syncope x7 today, recent admit for similar complaints w/ negative work up. CT Head w/ no acute findings, images reviewed by me. Admit to CIC, Telemetry, check serial cardiac enzymes to eval for underlying ischemia. IVF for hydration. = No further episodes. Continue on telemetry. Troponin mildly elevated. Follow-up cardiology recommendations. = 03/13. Planned catheterization this afternoon. Appreciate cardiology assistance. = 03/14. Planned EP study this afternoon. // SVT: h/o SVT, recent admit 03/06 for same, s/p eval by Dr. Gomez, switched from Diltiazem to Metoprolol, s/p SVT x2 while in ER w/ good response after vagal maneuvers and Metoprolol PO. Will consult Dr. Quadrat for further evaluation, likely ablation. Continue Metoprolol. Check serial cardiac enzymes. IVF for hydration. = Troponin slightly elevated. Follow-up cardiology recommendations. = Echocardiogram 55% ejection fraction. Mild aortic regurgitation. Cardiology following. = Plan for catheterization on Tuesday, possible ablation following. Appreciate cardiology assistance = 03/14. EP study suctioning. // Dehydration: BUN 19, GFR 68, IVF for hydration, repeat labs in am. = Resolved. Discontinue IV fluids. Encourage p.o. intake. //Alcohol Use: Drinks 3-4 beers daily w/ wine, CIWA, Seizure Precautions, MVT/ Thiamine/Folate replacement. = Continue on Cipro. Does not appear to be withdrawing. = No signs of withdrawal currently. Discontinue CIWA protocol. //DVT Prophylaxis: Patient ambulating. Otherwise and coagulation as per cardiology. Discharge Planning Cardiology planning for further workup, catheterization, possible ablation. Hopefully home possibly Tuesday Problem Qualifiers (1) Syncope: Qualified Codes: R55 - Syncope and collapse Trina Ahuja MD March 15, 2018 18:24
--- NOTE | 2018-03-15 19:15 | PD.CARD.PN ---
Subjective Subjective Remarks No CP or SOB, no SVT, continue amio loading Objective Medications Current Medications Medications (Trade) Dose Ordered Sig/Quinton Route Start Time Stop Time Status Last Admin (NS Flush) 2 ml UNSCH PRN IV FLUSH 03/09/18 22:15 (NS Flush) 2 ml BID IV FLUSH 03/10/18 09:00 03/15/18 09:00 (Zofran Inj) 4 mg Q6H PRN IVP 03/09/18 22:15 (Tylenol) 650 mg Q6H PRN PO 03/09/18 22:15 ([place] 5-325 Mg) 1 tab Q4H PRN PO 03/09/18 22:15 (Morphine Inj) 2 mg Q3H PRN IV 03/09/18 23:00 ([place]adalupe-Colace) 1 tab BID PO 03/10/18 09:00 (Milk Of Magnesia Liq) 30 ml Q12H PRN PO 03/09/18 22:15 (Senokot) 17.2 mg Q12H PRN PO 03/09/18 22:15 (Dulcolax Supp) 10 mg DAILY PRN RECTAL 03/09/18 22:15 (Lactulose Liq) 30 ml DAILY PRN PO 03/09/18 22:15 (Aspirin Chew) 81 mg DAILY CHEW 03/10/18 09:00 03/15/18 10:24 (Pravachol) 80 mg DAILY PO 03/10/18 09:00 03/15/18 10:23 (Prinivil) 10 mg DAILY PO 03/14/18 09:00 03/15/18 10:24 (Ativan) 1 mg Q4H PRN PO 03/13/18 21:15 03/13/18 22:24 (Ativan Inj) 1 mg Q4H PRN IV PUSH 03/13/18 21:15 (Ativan) 2 mg Q2H PRN PO 03/13/18 21:15 (Ativan Inj) 2 mg Q2H PRN IV PUSH 03/13/18 21:15 (Ativan Inj) 2 mg Q1H PRN IV PUSH 03/13/18 21:15 (Ativan Inj) 2 mg Q15M PRN IV PUSH 03/13/18 21:15 Lactated Ringer's 1,000 ml @ 30 mls/hr Q24H PRN IV 03/14/18 03:00 03/17/18 02:59 Sodium Chloride 500 ml @ 30 mls/hr [id number] PRN IV 03/14/18 03:00 03/17/18 02:59 (Lopressor) 25 mg [employer] PRN PO 03/14/18 03:00 03/17/18 02:59 (Betadine 5% Antisepsis Kit) 1 applic [employer] PRN EACH NARE 03/14/18 03:00 03/17/18 02:59 (Chlorhexidine 2% Cloth) 3 pack [employer] PRN TOPICAL 03/14/18 03:00 03/17/18 02:59 (NovoLIN R INJ) See Protocol Table ... [employer]ER PRN SQ 03/14/18 03:00 03/17/18 02:59 (Cordarone) 400 mg Q12HR PO 03/14/18 21:00 03/15/18 10:23 ([facility] [place] Nursing Information) ALL NURSING DEPARTME... UNSCH PRN .XX 03/14/18 21:45 03/15/18 21:44 Vital Signs / I&O Vital Signs Date Time Temp Pulse Resp B/P (MAP) Pulse Ox O2 Delivery O2 Flow Rate FiO2 03/15/18 18:00 64 03/15/18 17:00 56 03/15/18 16:00 83 03/15/18 15:00 97.8 84 16 93/55 (68) 93 03/15/18 15:00 91 03/15/18 14:00 77 03/15/18 13:00 66 03/15/18 12:00 63 03/15/18 11:00 68 03/15/18 11:00 97.7 63 16 132/75 (94) 95 03/15/18 10:00 74 03/15/18 09:00 72 03/15/18 08:00 62 03/15/18 07:00 97.4 61 16 144/78 (100) 95 03/15/18 07:00 56 03/15/18 07:00 95 Room Air 03/15/18 06:00 51 03/15/18 05:00 51 03/15/18 04:00 52 03/15/18 03:00 52 03/15/18 03:00 97.5 61 16 104/60 (75) 100 03/15/18 02:00 61 03/15/18 01:00 61 03/15/18 00:00 68 03/14/18 23:30 97.6 65 16 114/77 (89) 100 03/14/18 23:00 65 03/14/18 22:00 75 03/14/18 21:00 74 03/14/18 20:45 97.4 79 16 91/70 (77) 96 03/14/18 20:32 97.4 78 14 142/77 (98) 100 Nasal Cannula 2 03/14/18 20:30 162 14 68/28 (41) 99 Nasal Cannula 2 03/14/18 20:15 73 16 106/60 (75) 100 Nasal Cannula 2 03/14/18 20:10 82 15 110/78 (89) 99 Nasal Cannula 2 03/14/18 20:07 97.0 89 16 86/51 (63) 98 Nasal Cannula 2 03/14/18 20:00 96 Nasal Cannula 2.00 I/O 03/14/18 03/14/18 03/14/18 03/15/18 03/15/18 03/15/18 07:00 15:00 23:00 07:00 15:00 23:00 Intake Total 480 ml 1840 ml 480 ml 620 ml Output Total 425 ml 1175 ml 300 ml Balance 480 ml 1415 ml -695 ml 320 ml Intake Oral 480 ml 340 ml 480 ml 620 ml Other 1500 ml Output Urine Total 400 ml 1175 ml 300 ml Estimated Blood Loss 25 ml # Voids 3 6 3 # Bowel Movements 0 0 Physical Exam GENERAL: In NAD. SKIN: Warm and dry. HEAD: Normocephalic. EYES: No scleral icterus. No injection or drainage. NECK: Supple, trachea midline. No JVD or lymphadenopathy. CARDIOVASCULAR: Regular rate and rhythm without murmurs, gallops, or rubs. RESPIRATORY: Breath sounds equal bilaterally. No accessory muscle use. GASTROINTESTINAL: Abdomen soft, non-tender, nondistended. MUSCULOSKELETAL: No cyanosis, trace edema. Groin stable Assessment and Plan Problem List: (1) Angina at rest ICD Codes: I20.8 - Other forms of angina pectoris (2) SVT (supraventricular tachycardia) ICD Codes: I47.1 - Supraventricular tachycardia (3) Cardiomyopathy ICD Codes: I42.9 - Cardiomyopathy, unspecified (4) CHF (congestive heart failure) ICD Codes: I50.9 - Heart failure, unspecified (5) Syncope ICD Codes: R55 - Syncope and collapse Status: Acute (6) HTN (hypertension) ICD Codes: I10 - Essential (primary) hypertension (7) Dyslipidemia ICD Codes: E78.5 - Hyperlipidemia, unspecified (8) EtOH dependence ICD Codes: F10.20 - Alcohol dependence, uncomplicated (9) Subdural hematoma ICD Codes: S06.5X9A - Traumatic subdural hemorrhage with loss of consciousness of unspecified duration, initial encounter Assessment and Plan EPS with left atrial tachycardia and no inducible VT. Continue amio loading, no recurrent SVT. Continue therapy for CHF. Will place Life Vest and recheck LV fx by echo in 3 months. If EF still low, will place ICD. D/w pt and . Possibly home Fri if stable. Problem Qualifiers (1) Syncope: Qualified Codes: R55 - Syncope and collapse Karl Gomez MD March 15, 2018 19:15
[2018-03-16] VITALS (22 sets, daily range): BP systolic 90–126; BP diastolic 54–73; PULSE 50–96; RESP 16–20; TEMP 97.6–98.1; O2SAT 94–97
[2018-03-16] MEDS: LISINOPRIL 10 MG TAB PO SCH (08:12)
[2018-03-16] MEDS: PRAVASTATIN SOD 80 MG TAB PO SCH (08:12)
[2018-03-16] MEDS: DOCUSATE SODIUM 50 MG/SENNA 8.6 MG TAB PO SCH (08:12)
[2018-03-16] MEDS: AMIODARONE 200 MG TAB PO SCH ×2 (08:12→20:14)
[2018-03-16] MEDS: SODIUM CHLORIDE 0.9% FLUSH 10 ML FLUSH IV FLUSH SCH ×2 (08:12→20:15)
[2018-03-16] MEDS: ASPIRIN 81 MG CHEW TAB CHEW SCH (08:12)
--- NOTE | 2018-03-16 18:07 | HHI.PR ---
Subjective Remarks Patient having LifeVest being set up now I discussed with the agent of the company Later I discussed with the metaphysicist Dr. hoang he would like to monitor patient overnight Otherwise no acute issue Objective Vitals Vital Signs Date Time Temp Pulse Resp B/P (MAP) Pulse Ox O2 Delivery O2 Flow Rate FiO2 03/16/18 16:00 79 03/16/18 12:00 63 03/16/18 12:00 97.8 62 16 117/73 (88) 97 03/16/18 11:00 68 03/16/18 10:00 76 03/16/18 09:00 76 03/16/18 08:00 97.6 71 16 111/73 (86) 96 03/16/18 08:00 62 03/16/18 08:00 Room Air 03/16/18 07:00 52 03/16/18 06:00 53 03/16/18 05:00 54 03/16/18 04:04 98.1 62 18 90/58 (69) 94 03/16/18 04:00 50 03/16/18 03:00 51 03/16/18 02:00 52 03/16/18 01:00 54 03/16/18 00:00 64 03/15/18 23:45 97.6 65 18 116/70 (85) 98 03/15/18 23:00 95 03/15/18 22:00 64 03/15/18 21:49 98.0 66 18 100/66 (77) 95 03/15/18 21:49 95 Room Air 03/15/18 21:00 78 03/15/18 20:00 72 03/15/18 19:00 77 I/O 03/15/18 03/15/18 03/15/18 03/16/18 03/16/18 03/16/18 07:00 15:00 23:00 07:00 15:00 23:00 Intake Total 480 ml 620 ml 1200 ml 620 ml Output Total 1175 ml 300 ml 1200 ml Balance -695 ml 320 ml 0 ml 620 ml Intake Oral 480 ml 620 ml 1200 ml 620 ml Output Urine Total 1175 ml 300 ml 1200 ml # Voids 3 4 # Bowel Movements 0 1 Result Diagram: 03/14/18 0550 Objective Remarks GENERAL: This is a well-nourished, well-developed patient, in no apparent distress. CARDIOVASCULAR: RRR, no gallops, or rubs. RESPIRATORY: Fair air entry bilaterally. No W, R, or R GASTROINTESTINAL: Abdomen soft, non-tender, nondistended. Positive bowel sounds MUSCULOSKELETAL: Extremities without clubbing, cyanosis, or edema. Pedal pulses appreciated NEUROLOGICAL: Awake and alert. Moves all extremity. Normal speech.no focal neurological deficit A/P Problem List: (1) Syncope ICD Code: R55 - Syncope and collapse Status: Acute (2) SVT (supraventricular tachycardia) ICD Code: I47.1 - Supraventricular tachycardia (3) Dehydration ICD Code: E86.0 - Dehydration (4) Alcohol use ICD Code: Z78.9 - Other specified health status Assessment and Plan 03/15: Awaiting LifeVest, continue current care, cardiology following 03/16 patient is having LifeVest set up today, discussed with cardiology DrJeffrey quadrant would like to monitor patient overnight A/P //Syncope: reports syncope x7 today, recent admit for similar complaints w/ negative work up. CT Head w/ no acute findings, images reviewed by me. Admit to [facility], Telemetry, check serial cardiac enzymes to eval for underlying ischemia. IVF for hydration. = No further episodes. Continue on telemetry. Troponin mildly elevated. Follow-up cardiology recommendations. = 03/13. Planned catheterization this afternoon. Appreciate cardiology assistance. = 03/14. Planned EP study this afternoon. // SVT: h/o SVT, recent admit 03/06 for same, s/p eval by Dr. Gomez, switched from Diltiazem to Metoprolol, s/p SVT x2 while in ER w/ good response after vagal maneuvers and Metoprolol PO. Will consult Dr. Gomez for further evaluation, likely ablation. Continue Metoprolol. Check serial cardiac enzymes. IVF for hydration. = Troponin slightly elevated. Follow-up cardiology recommendations. = Echocardiogram 55% ejection fraction. Mild aortic regurgitation. Cardiology following. = Plan for catheterization on Tuesday, possible ablation following. Appreciate cardiology assistance = 03/14. EP study suctioning. // Dehydration: BUN 19, GFR 68, IVF for hydration, repeat labs in am. = Resolved. Discontinue IV fluids. Encourage p.o. intake. //Alcohol Use: Drinks 3-4 beers daily w/ wine, CIWA, Seizure Precautions, MVT/ Thiamine/Folate replacement. = Continue on Cipro. Does not appear to be withdrawing. = No signs of withdrawal currently. Discontinue CIWA protocol. //DVT Prophylaxis: Patient ambulating. Otherwise and coagulation as per cardiology. Discharge Planning Cardiology planning for further workup, catheterization, possible ablation. Hopefully home possibly Tuesday Problem Qualifiers (1) Syncope: Qualified Codes: R55 - Syncope and collapse Trina Ahuja MD March 16, 2018 18:07
--- NOTE | 2018-03-16 19:39 | PD.CARD.PN ---
Subjective Subjective Remarks No CP or SOB, no SVT, Life Vest placed Objective Medications Current Medications Medications (Trade) Dose Ordered Sig/Quinton Route Start Time Stop Time Status Last Admin (NS Flush) 2 ml UNSCH PRN IV FLUSH 03/09/18 22:15 (NS Flush) 2 ml BID IV FLUSH 03/10/18 09:00 03/16/18 08:12 (Zofran Inj) 4 mg Q6H PRN IVP 03/09/18 22:15 (Tylenol) 650 mg Q6H PRN PO 03/09/18 22:15 ([place] 5-325 Mg) 1 tab Q4H PRN PO 03/09/18 22:15 (Morphine Inj) 2 mg Q3H PRN IV 03/09/18 23:00 (Guadalupe-Colace) 1 tab BID PO 03/10/18 09:00 (Milk Of Magnesia Liq) 30 ml Q12H PRN PO 03/09/18 22:15 (Senokot) 17.2 mg Q12H PRN PO 03/09/18 22:15 (Dulcolax Supp) 10 mg DAILY PRN RECTAL 03/09/18 22:15 (Lactulose Liq) 30 ml DAILY PRN PO 03/09/18 22:15 (Aspirin Chew) 81 mg DAILY CHEW 03/10/18 09:00 03/16/18 08:12 (Pravachol) 80 mg DAILY PO 03/10/18 09:00 03/16/18 08:12 (Prinivil) 10 mg DAILY PO 03/14/18 09:00 03/16/18 08:12 (Ativan) 1 mg Q4H PRN PO 03/13/18 21:15 03/13/18 22:24 (Ativan Inj) 1 mg Q4H PRN IV PUSH 03/13/18 21:15 (Ativan) 2 mg Q2H PRN PO 03/13/18 21:15 (Ativan Inj) 2 mg Q2H PRN IV PUSH 03/13/18 21:15 (Ativan Inj) 2 mg Q1H PRN IV PUSH 03/13/18 21:15 (Ativan Inj) 2 mg Q15M PRN IV PUSH 03/13/18 21:15 Lactated Ringer's 1,000 ml @ 30 mls/hr Q24H PRN IV 03/14/18 03:00 03/17/18 02:59 Sodium Chloride 500 ml @ 30 mls/hr [id number] PRN IV 03/14/18 03:00 03/17/18 02:59 (Lopressor) 25 mg [employer]IST PRN PO 03/14/18 03:00 03/17/18 02:59 (Betadine 5% Antisepsis Kit) 1 applic [employer]CCUP[employer]IST PRN EACH NARE 03/14/18 03:00 03/17/18 02:59 (Chlorhexidine 2% Cloth) 3 pack [employer]IST PRN TOPICAL 03/14/18 03:00 03/17/18 02:59 (NovoLIN R INJ) See Protocol Table ... OCCUPANCY SPECIALIST PRN SQ 03/14/18 03:00 03/17/18 02:59 (Cordarone) 400 mg Q12HR PO 03/14/18 21:00 03/16/18 08:12 Vital Signs / I&O Vital Signs Date Time Temp Pulse Resp B/P (MAP) Pulse Ox O2 Delivery O2 Flow Rate FiO2 03/16/18 18:00 67 03/16/18 17:00 64 03/16/18 16:00 79 03/16/18 12:00 63 03/16/18 12:00 97.8 62 16 117/73 (88) 97 03/16/18 11:00 68 03/16/18 10:00 76 03/16/18 09:00 76 03/16/18 08:00 97.6 71 16 111/73 (86) 96 03/16/18 08:00 62 03/16/18 08:00 Room Air 03/16/18 07:00 52 03/16/18 06:00 53 03/16/18 05:00 54 03/16/18 04:04 98.1 62 18 90/58 (69) 94 03/16/18 04:00 50 03/16/18 03:00 51 03/16/18 02:00 52 03/16/18 01:00 54 03/16/18 00:00 64 03/15/18 23:45 97.6 65 18 116/70 (85) 98 03/15/18 23:00 95 03/15/18 22:00 64 03/15/18 21:49 98.0 66 18 100/66 (77) 95 03/15/18 21:49 95 Room Air 03/15/18 21:00 78 03/15/18 20:00 72 I/O 03/15/18 03/15/18 03/15/18 03/16/18 03/16/18 03/16/18 06:59 14:59 22:59 06:59 14:59 22:59 Intake Total 480 ml 620 ml 1200 ml 620 ml Output Total 1175 ml 300 ml 1200 ml Balance -695 ml 320 ml 0 ml 620 ml Intake Oral 480 ml 620 ml 1200 ml 620 ml Output Urine Total 1175 ml 300 ml 1200 ml # Voids 3 4 # Bowel Movements 0 1 Physical Exam GENERAL: In NAD. SKIN: Warm and dry. HEAD: Normocephalic. EYES: No scleral icterus. No injection or drainage. NECK: Supple, trachea midline. No JVD or lymphadenopathy. CARDIOVASCULAR: Regular rate and rhythm without murmurs, gallops, or rubs. RESPIRATORY: Breath sounds equal bilaterally. No accessory muscle use. GASTROINTESTINAL: Abdomen soft, non-tender, nondistended. MUSCULOSKELETAL: No cyanosis, trace edema. Groin stable Assessment and Plan Problem List: (1) Angina at rest ICD Codes: I20.8 - Other forms of angina pectoris (2) SVT (supraventricular tachycardia) ICD Codes: I47.1 - Supraventricular tachycardia (3) Cardiomyopathy ICD Codes: I42.9 - Cardiomyopathy, unspecified (4) CHF (congestive heart failure) ICD Codes: I50.9 - Heart failure, unspecified (5) Syncope ICD Codes: R55 - Syncope and collapse Status: Acute (6) HTN (hypertension) ICD Codes: I10 - Essential (primary) hypertension (7) Dyslipidemia ICD Codes: E78.5 - Hyperlipidemia, unspecified (8) EtOH dependence ICD Codes: F10.20 - Alcohol dependence, uncomplicated (9) Subdural hematoma ICD Codes: S06.5X9A - Traumatic subdural hemorrhage with loss of consciousness of unspecified duration, initial encounter Assessment and Plan No recurrent SVT, continue amio loading. EPS with left atrial tachycardia and no inducible VT. Continue therapy for CHF. Life Vest placed, recheck LV fx by echo in 3 months. If EF still low, will place ICD. Possibly home tomorrow if stable. Problem Qualifiers (1) Syncope: Qualified Codes: R55 - Syncope and collapse Quadrat,Otakar MD March 16, 2018 19:39
[2018-03-17] VITALS (18 sets, daily range): BP systolic 121–132; BP diastolic 77–81; PULSE 50–84; RESP 18–20; TEMP 97.6; O2SAT 96
[2018-03-17] MEDS: PRAVASTATIN SOD 80 MG TAB PO SCH (08:39)
[2018-03-17] MEDS: AMIODARONE 200 MG TAB PO SCH (08:39)
[2018-03-17] MEDS: ASPIRIN 81 MG CHEW TAB CHEW SCH (08:39)
[2018-03-17] MEDS: LISINOPRIL 10 MG TAB PO SCH (08:39)
[2018-03-17] MEDS: DOCUSATE SODIUM 50 MG/SENNA 8.6 MG TAB PO SCH (08:40)
[2018-03-17] MEDS: SODIUM CHLORIDE 0.9% FLUSH 10 ML FLUSH IV FLUSH SCH (08:41)
--- NOTE | 2018-03-17 11:59 | HHI.PR ---
Subjective Remarks Doing okay, uneventful night, cardiology to clear patient for discharge Objective Vitals Vital Signs Date Time Temp Pulse Resp B/P (MAP) Pulse Ox O2 Delivery O2 Flow Rate FiO2 03/17/18 08:00 97.6 68 18 121/81 (94) 96 03/17/18 08:00 52 03/17/18 06:07 81 03/17/18 05:00 53 03/17/18 04:00 53 03/17/18 04:00 55 20 03/17/18 03:08 50 03/17/18 00:30 62 20 03/17/18 00:00 50 03/16/18 23:00 52 03/16/18 22:00 58 03/16/18 21:00 58 03/16/18 20:00 68 03/16/18 20:00 98.0 69 20 126/54 (78) 96 03/16/18 20:00 96 Room Air 03/16/18 19:00 96 03/16/18 18:00 67 03/16/18 17:00 64 03/16/18 16:00 79 03/16/18 12:00 63 03/16/18 12:00 97.8 62 16 117/73 (88) 97 I/O 03/16/18 03/16/18 03/16/18 03/17/18 03/17/18 03/17/18 07:00 15:00 23:00 07:00 15:00 23:00 Intake Total 1200 ml 620 ml 240 ml Output Total 1200 ml 700 ml Balance 0 ml 620 ml -460 ml Intake Oral 1200 ml 620 ml 240 ml Output Urine Total 1200 ml 700 ml # Voids 4 # Bowel Movements 1 Result Diagram: 03/14/18 0550 Objective Remarks GENERAL: This is a well-nourished, well-developed patient, in no apparent distress. CARDIOVASCULAR: RRR, no gallops, or rubs. RESPIRATORY: Fair air entry bilaterally. No W, R, or R GASTROINTESTINAL: Abdomen soft, non-tender, nondistended. Positive bowel sounds MUSCULOSKELETAL: Extremities without clubbing, cyanosis, or edema. Pedal pulses appreciated NEUROLOGICAL: Awake and alert. Moves all extremity. Normal speech.no focal neurological deficit A/P Problem List: (1) Syncope ICD Code: R55 - Syncope and collapse Status: Acute (2) SVT (supraventricular tachycardia) ICD Code: I47.1 - Supraventricular tachycardia (3) Dehydration ICD Code: E86.0 - Dehydration (4) Alcohol use ICD Code: Z78.9 - Other specified health status Assessment and Plan 03/15: Awaiting LifeVest, continue current care, cardiology following 03/16 patient is having LifeVest set up today, discussed with cardiology DrJeffrey hoang would like to monitor patient overnight 03/17: Doing well LifeVest on, cardiology to clear patient later on today for discharge A/P //Syncope: reports syncope x7 today, recent admit for similar complaints w/ negative work up. CT Head w/ no acute findings, images reviewed by me. Admit to [facility], Telemetry, check serial cardiac enzymes to eval for underlying ischemia. IVF for hydration. = No further episodes. Continue on telemetry. Troponin mildly elevated. Follow-up cardiology recommendations. = 03/13. Planned catheterization this afternoon. Appreciate cardiology assistance. = 03/14. Planned EP study this afternoon. // SVT: h/o SVT, recent admit 03/06 for same, s/p eval by Dr. Gomez, switched from Diltiazem to Metoprolol, s/p SVT x2 while in ER w/ good response after vagal maneuvers and Metoprolol PO. Will consult Dr. Gomez for further evaluation, likely ablation. Continue Metoprolol. Check serial cardiac enzymes. IVF for hydration. = Troponin slightly elevated. Follow-up cardiology recommendations. = Echocardiogram 55% ejection fraction. Mild aortic regurgitation. Cardiology following. = Plan for catheterization on Tuesday, possible ablation following. Appreciate cardiology assistance = 03/14. EP study suctioning. // Dehydration: BUN 19, GFR 68, IVF for hydration, repeat labs in am. = Resolved. Discontinue IV fluids. Encourage p.o. intake. //Alcohol Use: Drinks 3-4 beers daily w/ wine, CIWA, Seizure Precautions, MVT/ Thiamine/Folate replacement. = Continue on Cipro. Does not appear to be withdrawing. = No signs of withdrawal currently. Discontinue CIWA protocol. //DVT Prophylaxis: Patient ambulating. Otherwise and coagulation as per cardiology. Discharge Planning Cardiology planning for further workup, catheterization, possible ablation. Hopefully home possibly Tuesday Problem Qualifiers (1) Syncope: Qualified Codes: R55 - Syncope and collapse Trina Ahuja MD March 17, 2018 11:59
--- NOTE | 2018-03-17 15:26 | PD.CARD.PN ---
Subjective Subjective Remarks No CP or SOB, no SVT, ambulating without difficulties Objective Medications Current Medications Medications (Trade) Dose Ordered Sig/Quinton Route Start Time Stop Time Status Last Admin (NS Flush) 2 ml UNSCH PRN IV FLUSH 03/09/18 22:15 (NS Flush) 2 ml BID IV FLUSH 03/10/18 09:00 03/17/18 08:41 (Zofran Inj) 4 mg Q6H PRN IVP 03/09/18 22:15 (Tylenol) 650 mg Q6H PRN PO 03/09/18 22:15 ([place] 5-325 Mg) 1 tab Q4H PRN PO 03/09/18 22:15 (Morphine Inj) 2 mg Q3H PRN IV 03/09/18 23:00 (Guadalupe-Colace) 1 tab BID PO 03/10/18 09:00 (Milk Of Magnesia Liq) 30 ml Q12H PRN PO 03/09/18 22:15 (Senokot) 17.2 mg Q12H PRN PO 03/09/18 22:15 (Dulcolax Supp) 10 mg DAILY PRN RECTAL 03/09/18 22:15 (Lactulose Liq) 30 ml DAILY PRN PO 03/09/18 22:15 (Aspirin Chew) 81 mg DAILY CHEW 03/10/18 09:00 03/17/18 08:39 (Pravachol) 80 mg DAILY PO 03/10/18 09:00 03/17/18 08:39 (Prinivil) 10 mg DAILY PO 03/14/18 09:00 03/17/18 08:39 (Ativan) 1 mg Q4H PRN PO 03/13/18 21:15 03/13/18 22:24 (Ativan Inj) 1 mg Q4H PRN IV PUSH 03/13/18 21:15 (Ativan) 2 mg Q2H PRN PO 03/13/18 21:15 (Ativan Inj) 2 mg Q2H PRN IV PUSH 03/13/18 21:15 (Ativan Inj) 2 mg Q1H PRN IV PUSH 03/13/18 21:15 (Ativan Inj) 2 mg Q15M PRN IV PUSH 03/13/18 21:15 (Cordarone) 400 mg Q12HR PO 03/14/18 21:00 03/17/18 08:39 Vital Signs / I&O Vital Signs Date Time Temp Pulse Resp B/P (MAP) Pulse Ox O2 Delivery O2 Flow Rate FiO2 03/17/18 11:58 97.6 67 18 132/77 (95) 96 03/17/18 11:45 58 03/17/18 08:00 97.6 68 18 121/81 (94) 96 03/17/18 08:00 52 03/17/18 06:07 81 03/17/18 05:00 53 03/17/18 04:00 53 03/17/18 04:00 55 20 03/17/18 03:08 50 03/17/18 00:30 62 20 03/17/18 00:00 50 03/16/18 23:00 52 03/16/18 22:00 58 03/16/18 21:00 58 03/16/18 20:00 68 03/16/18 20:00 98.0 69 20 126/54 (78) 96 03/16/18 20:00 96 Room Air 03/16/18 19:00 96 03/16/18 18:00 67 03/16/18 17:00 64 03/16/18 16:00 79 I/O 03/16/18 03/16/18 03/16/18 03/17/18 03/17/18 03/17/18 07:00 15:00 23:00 07:00 15:00 23:00 Intake Total 1200 ml 620 ml 240 ml Output Total 1200 ml 700 ml Balance 0 ml 620 ml -460 ml Intake Oral 1200 ml 620 ml 240 ml Output Urine Total 1200 ml 700 ml # Voids 4 # Bowel Movements 1 Physical Exam GENERAL: In NAD. SKIN: Warm and dry. HEAD: Normocephalic. EYES: No scleral icterus. No injection or drainage. NECK: Supple, trachea midline. No JVD or lymphadenopathy. CARDIOVASCULAR: Regular rate and rhythm without murmurs, gallops, or rubs. RESPIRATORY: Breath sounds equal bilaterally. No accessory muscle use. GASTROINTESTINAL: Abdomen soft, non-tender, nondistended. MUSCULOSKELETAL: No cyanosis, trace edema. Assessment and Plan Problem List: (1) Angina at rest ICD Codes: I20.8 - Other forms of angina pectoris (2) SVT (supraventricular tachycardia) ICD Codes: I47.1 - Supraventricular tachycardia (3) Cardiomyopathy ICD Codes: I42.9 - Cardiomyopathy, unspecified (4) CHF (congestive heart failure) ICD Codes: I50.9 - Heart failure, unspecified (5) Syncope ICD Codes: R55 - Syncope and collapse Status: Acute (6) HTN (hypertension) ICD Codes: I10 - Essential (primary) hypertension (7) Dyslipidemia ICD Codes: E78.5 - Hyperlipidemia, unspecified (8) EtOH dependence ICD Codes: F10.20 - Alcohol dependence, uncomplicated (9) Subdural hematoma ICD Codes: S06.5X9A - Traumatic subdural hemorrhage with loss of consciousness of unspecified duration, initial encounter Assessment and Plan No recurrent SVT, continue amio loading 400 mg BID for 8 more days, then 200 mg daily. EPS with left atrial tachycardia and no inducible VT. Continue therapy for CHF. Life Vest placed, will recheck LV fx by echo in 3 months. If EF still low, will place ICD. DC home. Will schedule outpt f/u with me within 2-3 weeks. D/w pt and . Problem Qualifiers (1) Syncope: Qualified Codes: R55 - Syncope and collapse Karl Gomez MD March 17, 2018 15:26
[2018-03-17] MEDS ORDERED: LISI10TA3 PO (15:35)
[2018-03-17] MEDS ORDERED: AMIO200T PO ×2 (15:35)
== END 2018-03-17 16:55 | disposition home or self-care (01) | DRG 274 ==
LOC: NEPD 19:24 → NEDA 22:22 → N03B 03-10 02:17 → HCIS 03-10 04:36
PROVIDERS: ADMIT Hospitalist; ATTEND Hospitalist
PROC: 4A023N7 Measurement of Cardiac Sampling and Pressure, Left Heart, Percutaneous Approach (ICD-10-PCS; 2018-03-13)
PROC: B2111ZZ Fluoroscopy of Multiple Coronary Arteries using Low Osmolar Contrast (ICD-10-PCS; 2018-03-13)
PROC: B2151ZZ Fluoroscopy of Left Heart using Low Osmolar Contrast (ICD-10-PCS; 2018-03-13)
PROC: 4A0234Z Measurement of Cardiac Electrical Activity, Percutaneous Approach (ICD-10-PCS; 2018-03-14)
PROC: 02K83ZZ Map Conduction Mechanism, Percutaneous Approach (ICD-10-PCS; 2018-03-14)
PROC: 4A023FZ Measurement of Cardiac Rhythm, Percutaneous Approach (ICD-10-PCS; principal; 2018-03-14 16:00)
DX: I47.1 Supraventricular tachycardia (principal); I11.0 Hypertensive heart disease with heart failure; I42.9 Cardiomyopathy, unspecified; I48.91 Unspecified atrial fibrillation; I50.9 Heart failure, unspecified; I20.0 Unstable angina; E86.0 Dehydration; E78.5 Hyperlipidemia, unspecified; R55 Syncope and collapse; F10.20 Alcohol dependence, uncomplicated; I35.1 Nonrheumatic aortic (valve) insufficiency
CPT/HCPCS: 70450; 71045; 80048; 80053; 80061; 80307; 81001; 82550; 82948; 83735; 84484; 85025; 85610; 85730; 93005; 93306; 93312; 93320; 93325; 93458; 93613; 93620; 93623; 99152; 99153; C1730; C1732; C1769; C1893; J1644; J2250; J2370; J2720; J3010; J7030; Q9967